=== PATIENT | male | born 1965 | race Two or more races ===

== ENCOUNTER 2017-12-08 17:30 | Inpatient (IN) | payer MEDICAID ==
[~2017-12-08] VITALS: Ht 172.7 cm; Wt 113.4 kg
[2017-12-08 19:57] LABS: Basophils # (auto) 0 uL; Basophils % (auto) 0.5 % (0.0-2.0); Eosinophils # (auto) 0.1 uL; Eosinophils % (auto) 1.5 % (0.0-7.0); Hemoglobin 11.5 g/dL (13.5-17.5); Lymphocytes # (auto) 2.7 uL; Mean Corpuscular Hemoglobin 22.5 pg (28.0-32.0); Monocytes # (auto) 0.5 uL; Neutrophils # (auto) 5.6 uL; Neutrophils % (auto) 62.5 % (37.0-80.0)
[2017-12-08 20:01] LABS: Hematocrit 37.4 % (41.0-53.0); Lymphocytes % (auto) 29.6 % (10.0-50.0); Mean Corpuscular Hgb Conc. 30.8 g/dL (32.0-36.0); Monocytes % (auto) 5.9 % (0.0-12.0); Nucleated Red Blood Cells % 0.1 %; Platelet Count (auto) 266 10^3/uL (140-450); Red Blood Cells 5.12 10^6/uL (4.5-5.90); Red Cell Distribution Width 16.3 % (11.8-14.3)
[2017-12-08 20:53] LABS: Sodium 133 mmol/L (136-145)
[2017-12-08 20:54] LABS: Alanine Aminotransferase 35 U/L (16-61); Alkaline Phosphatase 124 U/L (45-117); Anion Gap 7 (5-15); Aspartate Aminotransferase 23 U/L (15-37); BUN/Creatinine Ratio 20.2; Blood Urea Nitrogen 45 mg/dL (7-18); Carbon Dioxide 23 mmol/L (21-32); Chloride 103 mmol/L (98-107); GFR African American 40 mL/min; GFR Non-African American 33 mL/min
[2017-12-08 20:55] LABS: Albumin 2.9 g/dL (3.4-5.0); Bilirubin, Total 0.2 mg/dL (0.2-1.0); Calcium 8.8 mg/dL (8.5-10.1); Total Protein 8.7 g/dL (6.4-8.2)
[2017-12-08 21:00] LABS: Glucose 516 mg/dL (74-106); Potassium 6.9 mmol/L (3.5-5.1)
[2017-12-08] MEDS ORDERED: CALCIUM GLUC 4.65meq/50ml D5AE 50 ML IV ONE ×2 (22:42→22:45)
[2017-12-08] MEDS ORDERED: SODIUM POLYSTYRENE SULF 15GM/60ML SUSP PO ONE (22:45)
[2017-12-08] MEDS ORDERED: SODIUM BICARBONATE 8.4% INJ 50ML SYRINGE IV ONE (22:45)
[2017-12-08] MEDS ORDERED: InsuLIN REG 1unit/0.01ml Soln (100units/ml) IV ONE (22:45)
[2017-12-08] MEDS ORDERED: DEXTROSE (50%) 50ML SYRG IV ONE (22:45)
[2017-12-09] MEDS ORDERED: SODIUM CHLORIDE 0.9% 1,000 ML IV SCH (01:12)
[2017-12-09 01:13] LABS: Potassium 5.6 mmol/L (3.5-5.1)
[2017-12-09] MEDS ORDERED: NITROGLYCERIN 0.4 MG SL TAB SL PRN (01:15)
[2017-12-09] MEDS ORDERED: DEXTROSE (50%) 50ML SYRG IV PRN (01:15)
[2017-12-09] MEDS ORDERED: MORPHINE SULF INJ 2 MG/ML SYRINGE 1ML IV PRN (01:15)
[2017-12-09] MEDS ORDERED: ONDANSETRON HCL 4 MG/2 ML VIAL IV PRN (01:15)
[2017-12-09] MEDS ORDERED: SODIUM CHLORIDE 0.9% 500 ML IV ONE (01:15)
[2017-12-09] MEDS ORDERED: ACETAMINOPHEN 325 MG TAB PO PRN (01:15)
[2017-12-09] MEDS: ACCU-CHEK COMFORT CURVE STRIP VI SCH ×6 (03:51→23:48)
[2017-12-09] MEDS: InsuLIN REG 1unit/0.01ml Soln (100units/ml) SC SCH ×6 (03:56→23:48)
[2017-12-09] MEDS ORDERED: SPIRONOLACTONE 25 MG TAB PO SCH (06:00)
[2017-12-09] MEDS ORDERED: SPIR25TA89 (06:27)
[2017-12-09] MEDS ORDERED: ALLO100T (06:27)
[2017-12-09] MEDS ORDERED: MAGN400T23 (06:27)
[2017-12-09] MEDS ORDERED: METF-372 (06:27)
[2017-12-09] MEDS ORDERED: DOCU100C8 (06:27)
[2017-12-09] MEDS ORDERED: ATOR1TAB (06:27)
[2017-12-09] MEDS ORDERED: AMLO10TA2 (06:27)
[2017-12-09] MEDS ORDERED: FUR20T (06:27)
[2017-12-09] MEDS ORDERED: GLIP-116 (06:27)
[2017-12-09] MEDS ORDERED: CHOL20002 (06:27)
[2017-12-09] MEDS ORDERED: GABA400C11 (06:27)
[2017-12-09] MEDS ORDERED: GLUC-244 (06:27)
[2017-12-09] MEDS ORDERED: POTA1CAP (06:27)
[2017-12-09] MEDS ORDERED: LISI40TA (06:27)
[2017-12-09] MEDS ORDERED: CARV12.544 (06:27)
[2017-12-09] MEDS ORDERED: CANA300T (06:27)
[2017-12-09] MEDS ORDERED: DICY10CA12 (06:27)
[2017-12-09] MEDS ORDERED: LANC30MI (06:27)
[2017-12-09] MEDS: HEPARIN SODIUM (PORCINE) 5000 UNITS/ML 1ML VIAL SC SCH ×2 (10:00→21:36)
[2017-12-09] MEDS: CARVEDILOL 12.5 MG TAB PO SCH ×2 (10:42→21:38)
[2017-12-09] MEDS: FUROSEMIDE 20 MG TAB PO SCH (10:42)
[2017-12-09] MEDS: PANTOPRAZOLE 40 MG TAB PO SCH (10:43)
[2017-12-09] MEDS: amLODIPine BESYLATE 5 MG TAB PO SCH (10:43)
[2017-12-09 11:21] LABS: BUN/Creatinine Ratio 25.7; Calcium 8.8 mg/dL (8.5-10.1)
[2017-12-09 11:28] LABS: Potassium 5.6 mmol/L (3.5-5.1)
[2017-12-09] MEDS: HYDROcodone-ACET 5/325MG TAB PO PRN ×2 (13:22→19:54)
[2017-12-09 13:30] VITALS: BP 118/68
[2017-12-09] MEDS: SODIUM CHLORIDE 0.9% 1,000 ML IV SCH ×2 (13:40→20:12)
[2017-12-09] MEDS ORDERED: SODIUM CHLORIDE 0.9% 1,000 ML IV ONE (19:30)
[2017-12-09] MEDS ORDERED: ATORVASTATIN 20 MG TAB PO SCH (22:00)
[2017-12-09 22:06] VITALS: BP 160/94
[2017-12-10] MEDS: SODIUM CHLORIDE 0.9% 1,000 ML IV SCH ×2 (03:32→08:20)
[2017-12-10] MEDS: InsuLIN REG 1unit/0.01ml Soln (100units/ml) SC SCH ×3 (04:00→11:43)
[2017-12-10] MEDS: ACCU-CHEK COMFORT CURVE STRIP VI SCH ×3 (04:00→11:43)
[2017-12-10 04:29] VITALS: BP 134/72
[2017-12-10] MEDS: HYDROcodone-ACET 5/325MG TAB PO PRN ×2 (05:48→13:46)
[2017-12-10 06:18] LABS: Urine Bacteria NONE SEEN /hpf (None Seen); Urine Blood Negative /uL (Negative); Urine Budding Yeast OCCASIONAL /hpf (None Seen); Urine Specific Gravity 1.013 (1.001-1.035); Urine WBC 2 /hpf (0 - 3)
[2017-12-10 06:22] LABS: Eosinophils # (auto) 0.3 uL; Hematocrit 33.8 % (41.0-53.0); Hemoglobin 10.5 g/dL (13.5-17.5); Mean Corpuscular Hemoglobin 22.2 pg (28.0-32.0); Mean Corpuscular Volume 71.4 fL (80.0-100.0); Monocytes # (auto) 0.4 uL; Monocytes % (auto) 5.8 % (0.0-12.0); Nucleated Red Blood Cells % 0.1 %; Red Blood Cells 4.74 10^6/uL (4.5-5.90)
[2017-12-10 06:25] LABS: Basophils # (auto) 0.1 uL; Basophils % (auto) 0.8 % (0.0-2.0); Eosinophils % (auto) 4.3 % (0.0-7.0); Lymphocytes # (auto) 2.8 uL; Lymphocytes % (auto) 41.2 % (10.0-50.0); Mean Corpuscular Hgb Conc. 31.1 g/dL (32.0-36.0); Neutrophils # (auto) 3.3 uL; Neutrophils % (auto) 47.9 % (37.0-80.0); Platelet Count (auto) 244 10^3/uL (140-450); Red Cell Distribution Width 15.5 % (11.8-14.3); White Blood Cell 6.9 10^3/uL (4.4-10.8)
[2017-12-10 06:28] LABS: Protein, Urine 12.5 mg/dL (0.0-11.9)
[2017-12-10 06:44] LABS: Albumin 2.3 g/dL (3.4-5.0); BUN/Creatinine Ratio 29.4; Bilirubin, Total 0.3 mg/dL (0.2-1.0); Calcium 7.2 mg/dL (8.5-10.1); Phosphorus 3.5 mg/dL (2.5-4.90); Potassium 4.2 mmol/L (3.5-5.1); Total Protein 6.5 g/dL (6.4-8.2); Uric Acid 5.6 mg/dL (3.5-7.2)
[2017-12-10 08:00] VITALS: BP 142/82
[2017-12-10 09:00] VITALS: BP 142/82
[2017-12-10] MEDS: FUROSEMIDE 20 MG TAB PO SCH (09:41)
[2017-12-10] MEDS: CARVEDILOL 12.5 MG TAB PO SCH (09:41)
[2017-12-10] MEDS: amLODIPine BESYLATE 5 MG TAB PO SCH (09:41)
[2017-12-10] MEDS: PANTOPRAZOLE 40 MG TAB PO SCH (09:42)
[2017-12-10] MEDS: HEPARIN SODIUM (PORCINE) 5000 UNITS/ML 1ML VIAL SC SCH (09:43)
[2017-12-10 13:04] VITALS: BP 143/83
[2017-12-10 13:12] VITALS: BP 143/83
== END 2017-12-10 14:50 | disposition home or self-care (01) | DRG 420 ==
LOC: ER 17:30 → TELE 17:31 → TELE-CENTR 12-09 13:28
PROVIDERS: ADMIT Nurse Practitioner; ATTEND Internal Medicine
DX: E11.65 Type 2 diabetes mellitus with hyperglycemia (principal); N17.0 Acute kidney failure with tubular necrosis; E43 Unspecified severe protein-calorie malnutrition; I50.9 Heart failure, unspecified; I11.0 Hypertensive heart disease with heart failure; E11.21 Type 2 diabetes mellitus with diabetic nephropathy; E86.0 Dehydration; E87.1 Hypo-osmolality and hyponatremia; E87.5 Hyperkalemia; E66.01 Morbid (severe) obesity due to excess calories; E78.5 Hyperlipidemia, unspecified; E87.6 Hypokalemia; M10.9 Gout, unspecified; K21.9 Gastro-esophageal reflux disease without esophagitis; Z82.49 Family history of ischemic heart disease and other diseases of the circulatory system; Z83.3 Family history of diabetes mellitus; Z68.38 Body mass index [BMI] 38.0-38.9, adult; Z79.4 Long term (current) use of insulin
CPT/HCPCS: 36415; 71046; 76775; 80048; 80053; 81001; 82010; 82306; 82570; 82947; 82962; 83880; 84100; 84132; 84156; 84300; 84443; 84484; 84550; 85025; 93005; 96361; 96374; 96375; J0610; J1815; J2405

== ENCOUNTER 2020-03-20 05:24 | Inpatient (IN) | payer MEDICAID ==
[~2020-03-20] VITALS: Ht 167.6 cm; Wt 112.4 kg
[2020-03-20] VITALS (59 sets, daily range): BP systolic 87–136; BP diastolic 54–87
[~2020-03-20 05:24] MED LIST: ALLO100T; AMLO10TA13; ATOR1TAB; CANA300T; CARV12.544; CHOL20002; DICY10CA12; DOCU100C8; FUR20T; GABA400C11; GLIP10TA9; GLUC-244; LANC30MI; LISI40TA; MAGN241.6; METF-372; POTA1CAP; SPIR25TA8
[2020-03-20] MEDS ORDERED: MIDAZOLAM HCL 5 MG/ML-1ML VIAL ONE (05:28)
[2020-03-20] MEDS ORDERED: MIDAZOLAM HCL 10 ML IV ONE (05:29)
[2020-03-20] MEDS ORDERED: PROPOFOL 100 ML IV ONE (05:42)
[2020-03-20] MEDS: PROPOFOL 100 ML IV SCH ×3 (05:44→18:05)
[2020-03-20] MEDS ORDERED: MIDAZOLAM HCL 5 MG/ML-1ML VIAL IV ONE (05:45)
[2020-03-20] MEDS ORDERED: ETOMIDATE (2MG/ML) 20ML VIAL IV ONE (05:45)
[2020-03-20] MEDS ORDERED: SUCCINYLCHOLINE CHLORIDE 20 MG/ML 10ML VIAL IV ONE (05:45)
[2020-03-20 06:25] LABS: Basophils # (auto) 0.1 10 ^3/uL (0-0.2); Eosinophils # (auto) 0.2 10 ^3/uL (0-0.8); Monocytes % (auto) 4.9 % (0.0-12.0); Nucleated Red Blood Cells % 0.1 %; Red Blood Cells 5.24 10^6/uL (4.5-5.90); Red Cell Distribution Width 19.4 % (11.8-14.3)
[2020-03-20 06:28] LABS: Basophils % (auto) 0.8 % (0.0-2.0); Eosinophils % (auto) 1.9 % (0.0-7.0); Hematocrit 36.2 % (41.0-53.0); Hemoglobin 11.3 g/dL (13.5-17.5); Lymphocytes # (auto) 2.3 10 ^3/uL (0.4-5.4); Lymphocytes % (auto) 21.3 % (10.0-50.0); Mean Corpuscular Hemoglobin 21.5 pg (28.0-32.0); Mean Corpuscular Hgb Conc. 31.2 g/dL (32.0-36.0); Monocytes # (auto) 0.5 10 ^3/uL (0-1.3); Neutrophils # (auto) 7.8 10 ^3/uL (1.6-8.6); Neutrophils % (auto) 71.1 % (37.0-80.0); Platelet Count (auto) 156 10^3/uL (140-450)
[2020-03-20 06:35] LABS: INR 1.04 (0.9-1.15); Partial Thromboplastin Time 24.2 sec (23.64-32.05)
[2020-03-20 06:39] LABS: Albumin 3.1 g/dL (3.4-5.0); Calcium 7.7 mg/dL (8.5-10.1); Potassium 4.8 mmol/L (3.5-5.1)
[2020-03-20 06:45] LABS: BUN/Creatinine Ratio 19.1; Bilirubin, Total 0.7 mg/dL (0.2-1.0); Total Protein 7.4 g/dL (6.4-8.2)
[2020-03-20] MEDS ORDERED: SODIUM CHLORIDE 0.9% 1,000 ML IV SCH (07:14)
[2020-03-20] MEDS ORDERED: NITROGLYCERIN 0.4 MG SL TAB SL PRN (07:15)
[2020-03-20] MEDS ORDERED: DEXTROSE (50%) 50ML SYRG IV PRN (07:15)
[2020-03-20] MEDS ORDERED: MORPHINE SULF INJ 2 MG/ML SYRINGE 1ML IV PRN (07:15)
[2020-03-20 07:38] LABS: Magnesium 1.9 mg/dL (1.6-2.6)
[2020-03-20 08:36] LABS: CRP High Sensitivity 2.53 mg/dL (< 0.3)
[2020-03-20 09:44] LABS: Urine Bacteria NONE SEEN /hpf (None Seen); Urine Blood 1+ /uL (Negative); Urine Hyaline Cast MANY /lpf (0 - 2); Urine Mucus FEW (None Seen); Urine Specific Gravity 1.016 (1.001-1.035); Urine Sperm PRESENT /hpf (None Seen); Urine WBC 2 /hpf (0 - 3)
[2020-03-20] MEDS ORDERED: ASCORBIC ACID 1,000 MG TAB PO SCH (10:00)
[2020-03-20] MEDS ORDERED: ENOXAPARIN SOD 30 MG/0.3 ML SYRINGE SC SCH (10:00)
[2020-03-20] MEDS ORDERED: AZITHROMYCIN 500 MG TAB PO SCH (10:00)
[2020-03-20] MEDS ORDERED: ZINC SULFATE 220mg CAP or TAB PO SCH (10:00)
[2020-03-20] MEDS ORDERED: fentaNYL Drip 2500mCg/250mlNS 250 ML IV ONE (10:08)
[2020-03-20] MEDS: PIPERACILLIN-TAZOB 3.375GM 100 ML IV SCH ×3 (10:26→20:23)
[2020-03-20] MEDS: PANTOPRAZOLE 40 MG/10 ML VIAL INJ IV SCH (10:27)
[2020-03-20] MEDS: AZITHROMYCIN 500MG/ 250ML 250 ML IV SCH (10:28)
[2020-03-20] MEDS: fentaNYL Drip 2500mCg/250mlNS 250 ML IV SCH (10:29)
[2020-03-20] MEDS: ENOXAPARIN SOD 40 MG/0.4 ML SYRINGE SC SCH (10:29)
[2020-03-20] MEDS: ACCU-CHEK COMFORT CURVE STRIP VI SCH ×2 (11:58→17:25)
[2020-03-20] MEDS ORDERED: IPRATROPIUM BROM 0.5 MG/2.5ML INH SOL NEB SCH (12:00)
[2020-03-20] MEDS ORDERED: ALBUTEROL SULF 2.5 MG/0.5ML(0.5%) NEB SOLN NEB SCH (12:00)
[2020-03-20] MEDS: InsuLIN REG 1unit/0.01ml Soln (100units/ml) SC SCH ×2 (12:00→17:25)
[2020-03-20] MEDS ORDERED: LOSA25TA38 PO (12:42)
[2020-03-20] MEDS ORDERED: ATOR40TA52 PO (12:42)
[2020-03-20] MEDS ORDERED: FURO1TAB31 PO (12:42)
[2020-03-20] MEDS ORDERED: TAMS0.4C36 PO (12:42)
[2020-03-20] MEDS ORDERED: ASPI-404 PO (12:42)
[2020-03-20] MEDS ORDERED: CARV12.544 PO (12:42)
[2020-03-20] MEDS ORDERED: OMEP20TA PO (12:42)
[2020-03-20] MEDS ORDERED: AMLO5TAB15 PO (12:42)
[2020-03-20] MEDS ORDERED: GABA-339 PO (12:42)
[2020-03-20] MEDS ORDERED: CHOL200029 PO (12:42)
[2020-03-20] MEDS ORDERED: GLIP10TA9 PO (12:42)
[2020-03-20] MEDS ORDERED: ALLO100T PO (12:42)
[2020-03-20] MEDS ORDERED: METF-370 PO (12:42)
[2020-03-20] MEDS ORDERED: DOCU100T15 PO (12:42)
[2020-03-20] MEDS: IPRATROPIUM BROM 0.5 MG/2.5ML INH SOL NEB SCH ×2 (14:20→22:15)
[2020-03-20] MEDS: ALBUTEROL SULF 2.5 MG/0.5ML(0.5%) NEB SOLN NEB SCH ×2 (14:20→22:14)
[2020-03-20] MEDS ORDERED: FUROSEMIDE 20 MG/2 ML VIAL IV ONE (14:45)
[2020-03-20] MEDS: NOREPINEPHRINE 8 MG/250ML KIT 250 ML IV SCH (15:01)
[2020-03-20] MEDS: FUROSEMIDE 20 MG/2 ML VIAL IV SCH (17:26)
[2020-03-20] MEDS: LINEZOLID 600MG/300ML 300 ML IV SCH (22:00)
[2020-03-21] VITALS (103 sets, daily range): BP systolic 89–146; BP diastolic 39–75
[2020-03-21] MEDS: PIPERACILLIN-TAZOB 3.375GM 100 ML IV SCH ×4 (02:00→20:47)
[2020-03-21] MEDS: PROPOFOL 100 ML IV SCH ×3 (02:00→14:26)
[2020-03-21 04:19] LABS: Basophils # (auto) 0 10 ^3/uL (0-0.2); Basophils % (auto) 0.4 % (0.0-2.0); Eosinophils # (auto) 0.2 10 ^3/uL (0-0.8); Eosinophils % (auto) 3.1 % (0.0-7.0); Hematocrit 28.9 % (41.0-53.0); Lymphocytes # (auto) 1.8 10 ^3/uL (0.4-5.4); Lymphocytes % (auto) 30.3 % (10.0-50.0); Mean Corpuscular Hemoglobin 21.6 pg (28.0-32.0); Mean Corpuscular Hgb Conc. 31.3 g/dL (32.0-36.0); Mean Corpuscular Volume 69.1 fL (80.0-100.0); Monocytes # (auto) 0.5 10 ^3/uL (0-1.3); Monocytes % (auto) 8.6 % (0.0-12.0); Neutrophils # (auto) 3.3 10 ^3/uL (1.6-8.6); Neutrophils % (auto) 57.6 % (37.0-80.0); Platelet Count (auto) 133 10^3/uL (140-450); Red Blood Cells 4.19 10^6/uL (4.5-5.90); White Blood Cell 5.8 10^3/uL (4.4-10.8)
[2020-03-21 04:39] LABS: Potassium 3.9 mmol/L (3.5-5.1)
[2020-03-21 04:49] LABS: Albumin 2.5 g/dL (3.4-5.0); BUN/Creatinine Ratio 17.6; Bilirubin, Total 0.5 mg/dL (0.2-1.0); Calcium 7.5 mg/dL (8.5-10.1); Total Protein 6.1 g/dL (6.4-8.2)
[2020-03-21] MEDS: InsuLIN REG 1unit/0.01ml Soln (100units/ml) SC SCH ×4 (06:00→18:00)
[2020-03-21] MEDS: ACCU-CHEK COMFORT CURVE STRIP VI SCH ×4 (06:01→17:49)
[2020-03-21] MEDS: FUROSEMIDE 20 MG/2 ML VIAL IV SCH ×2 (06:01→17:49)
[2020-03-21] MEDS: IPRATROPIUM BROM 0.5 MG/2.5ML INH SOL NEB SCH ×3 (06:33→21:59)
[2020-03-21] MEDS: ALBUTEROL SULF 2.5 MG/0.5ML(0.5%) NEB SOLN NEB SCH ×3 (06:33→22:00)
[2020-03-21] MEDS ORDERED: DIGOXIN (250MCG/ML) 2 ML AMPULE IV ONE (07:45)
[2020-03-21] MEDS: AZITHROMYCIN 500MG/ 250ML 250 ML IV SCH (09:38)
[2020-03-21] MEDS: PANTOPRAZOLE 40 MG/10 ML VIAL INJ IV SCH (09:39)
[2020-03-21] MEDS: ENOXAPARIN SOD 40 MG/0.4 ML SYRINGE SC SCH (09:39)
[2020-03-21] MEDS: fentaNYL Drip 2500mCg/250mlNS 250 ML IV SCH (10:11)
[2020-03-21] MEDS: LINEZOLID 600MG/300ML 300 ML IV SCH ×2 (12:24→22:00)
[2020-03-21] MEDS: ACETAMINOPHEN 325 MG TAB PO PRN (12:41)
[2020-03-21] MEDS: NOREPINEPHRINE 8 MG/250ML KIT 250 ML IV SCH (15:01)
[2020-03-21] MEDS: MIDAZOLAM DRIP 50 mg/50mL 50 ML IV SCH (18:00)
[2020-03-21] MEDS: ATRACURIUM BESYLATE 1,000 MG in D5W 5% 150 ML IV SCH (19:04)
[2020-03-22] VITALS (98 sets, daily range): BP systolic 88–151; BP diastolic 48–79
[2020-03-22] MEDS: ACCU-CHEK COMFORT CURVE STRIP VI SCH ×4 (00:14→17:36)
[2020-03-22] MEDS: PIPERACILLIN-TAZOB 3.375GM 100 ML IV SCH ×4 (02:00→20:00)
[2020-03-22] MEDS: PROPOFOL 100 ML IV SCH ×2 (04:52→16:50)
[2020-03-22] MEDS: InsuLIN REG 1unit/0.01ml Soln (100units/ml) SC SCH ×4 (06:00→17:36)
[2020-03-22] MEDS: IPRATROPIUM BROM 0.5 MG/2.5ML INH SOL NEB SCH ×3 (06:01→18:29)
[2020-03-22] MEDS: ALBUTEROL SULF 2.5 MG/0.5ML(0.5%) NEB SOLN NEB SCH ×3 (06:01→18:29)
[2020-03-22] MEDS ORDERED: FUROSEMIDE 40 MG/4 ML VIAL ONE (06:14)
[2020-03-22] MEDS: FUROSEMIDE 20 MG/2 ML VIAL IV SCH (06:20)
[2020-03-22 09:20] LABS: Magnesium 1.9 mg/dL (1.6-2.6); Potassium 3.7 mmol/L (3.5-5.1)
[2020-03-22 09:21] LABS: BUN/Creatinine Ratio 16.3
[2020-03-22] MEDS: PANTOPRAZOLE 40 MG/10 ML VIAL INJ IV SCH (09:51)
[2020-03-22] MEDS: AZITHROMYCIN 500MG/ 250ML 250 ML IV SCH (09:51)
[2020-03-22] MEDS: ENOXAPARIN SOD 40 MG/0.4 ML SYRINGE SC SCH (09:51)
[2020-03-22] MEDS: fentaNYL Drip 2500mCg/250mlNS 250 ML IV SCH (10:11)
[2020-03-22] MEDS: LINEZOLID 600MG/300ML 300 ML IV SCH ×2 (12:04→22:00)
[2020-03-22] MEDS: NOREPINEPHRINE 8 MG/250ML KIT 250 ML IV SCH (15:01)
[2020-03-22] MEDS: MIDAZOLAM DRIP 50 mg/50mL 50 ML IV SCH (17:29)
[2020-03-22] MEDS: ATRACURIUM BESYLATE 1,000 MG in D5W 5% 150 ML IV SCH (17:30)
[2020-03-22] MEDS ORDERED: FUROSEMIDE INJECTION 10 ML ONE (18:25)
[2020-03-23] VITALS (74 sets, daily range): BP systolic 96–155; BP diastolic 53–84
[2020-03-23] MEDS: IPRATROPIUM BROM 0.5 MG/2.5ML INH SOL NEB SCH ×4 (00:29→18:29)
[2020-03-23] MEDS: ALBUTEROL SULF 2.5 MG/0.5ML(0.5%) NEB SOLN NEB SCH ×4 (00:29→18:29)
[2020-03-23] MEDS: fentaNYL Drip 2500mCg/250mlNS 250 ML IV SCH (00:42)
[2020-03-23] MEDS: PROPOFOL 100 ML IV SCH ×3 (00:43→19:46)
[2020-03-23] MEDS: PIPERACILLIN-TAZOB 3.375GM 100 ML IV SCH ×4 (02:00→19:54)
[2020-03-23 04:51] LABS: Basophils # (auto) 0 10 ^3/uL (0-0.2); Basophils % (auto) 0.4 % (0.0-2.0); Eosinophils # (auto) 0.2 10 ^3/uL (0-0.8); Monocytes # (auto) 0.6 10 ^3/uL (0-1.3); Neutrophils # (auto) 4.8 10 ^3/uL (1.6-8.6)
[2020-03-23 04:54] LABS: Eosinophils % (auto) 3.2 % (0.0-7.0); Hematocrit 29.1 % (41.0-53.0); Lymphocytes % (auto) 14.7 % (10.0-50.0); Mean Corpuscular Hemoglobin 21.2 pg (28.0-32.0); Mean Corpuscular Hgb Conc. 31.1 g/dL (32.0-36.0); Mean Corpuscular Volume 68.1 fL (80.0-100.0); Monocytes % (auto) 8.9 % (0.0-12.0); Neutrophils % (auto) 72.8 % (37.0-80.0); Platelet Count (auto) 126 10^3/uL (140-450); Red Blood Cells 4.27 10^6/uL (4.5-5.90); Red Cell Distribution Width 18.8 % (11.8-14.3); White Blood Cell 6.6 10^3/uL (4.4-10.8)
[2020-03-23 05:03] LABS: BUN/Creatinine Ratio 14.7; Calcium 7.9 mg/dL (8.5-10.1); Magnesium 2.1 mg/dL (1.6-2.6); Potassium 3.7 mmol/L (3.5-5.1)
[2020-03-23] MEDS: FUROSEMIDE 100 MG/10ML VIAL IV SCH ×2 (05:34→17:45)
[2020-03-23] MEDS: InsuLIN REG 1unit/0.01ml Soln (100units/ml) SC SCH ×4 (05:55→18:00)
[2020-03-23] MEDS: ACCU-CHEK COMFORT CURVE STRIP VI SCH ×4 (05:55→18:00)
[2020-03-23] MEDS: ENOXAPARIN SOD 40 MG/0.4 ML SYRINGE SC SCH (09:48)
[2020-03-23] MEDS: PANTOPRAZOLE 40 MG/10 ML VIAL INJ IV SCH (09:48)
[2020-03-23] MEDS: AZITHROMYCIN 500MG/ 250ML 250 ML IV SCH (09:48)
[2020-03-23] MEDS: MIDAZOLAM DRIP 50 mg/50mL 50 ML IV SCH ×2 (10:33→17:47)
[2020-03-23] MEDS: LINEZOLID 600MG/300ML 300 ML IV SCH ×2 (12:53→21:56)
[2020-03-23] MEDS: NOREPINEPHRINE 8 MG/250ML KIT 250 ML IV SCH (15:01)
[2020-03-23] MEDS: ATRACURIUM BESYLATE 1,000 MG in D5W 5% 150 ML IV SCH (18:35)
[2020-03-24] VITALS (95 sets, daily range): BP systolic 99–129; BP diastolic 49–73
[2020-03-24] MEDS: ALBUTEROL SULF 2.5 MG/0.5ML(0.5%) NEB SOLN NEB SCH ×5 (00:01→23:59)
[2020-03-24] MEDS: IPRATROPIUM BROM 0.5 MG/2.5ML INH SOL NEB SCH ×5 (00:02→23:59)
[2020-03-24] MEDS: PIPERACILLIN-TAZOB 3.375GM 100 ML IV SCH ×4 (02:13→19:25)
[2020-03-24] MEDS: PROPOFOL 100 ML IV SCH ×3 (02:15→20:44)
[2020-03-24] MEDS: MIDAZOLAM DRIP 50 mg/50mL 50 ML IV SCH ×2 (02:52→10:12)
[2020-03-24] MEDS: fentaNYL Drip 2500mCg/250mlNS 250 ML IV SCH ×2 (03:30→23:22)
[2020-03-24 05:02] LABS: Basophils # (auto) 0 10 ^3/uL (0-0.2); Hemoglobin 8.7 g/dL (13.5-17.5); Monocytes # (auto) 0.4 10 ^3/uL (0-1.3); Neutrophils # (auto) 3.5 10 ^3/uL (1.6-8.6); Neutrophils % (auto) 67.7 % (37.0-80.0); Nucleated Red Blood Cells % 0.1 %
[2020-03-24 05:04] LABS: Basophils % (auto) 0.4 % (0.0-2.0); Eosinophils # (auto) 0.3 10 ^3/uL (0-0.8); Lymphocytes % (auto) 18.7 % (10.0-50.0); Mean Corpuscular Volume 67.9 fL (80.0-100.0); Monocytes % (auto) 8.2 % (0.0-12.0); Platelet Count (auto) 130 10^3/uL (140-450); Red Blood Cells 4.12 10^6/uL (4.5-5.90); Red Cell Distribution Width 17.9 % (11.8-14.3); White Blood Cell 5.1 10^3/uL (4.4-10.8)
[2020-03-24 05:13] LABS: Potassium 3.7 mmol/L (3.5-5.1)
[2020-03-24 05:20] LABS: BUN/Creatinine Ratio 13.8; Bilirubin, Total 0.6 mg/dL (0.2-1.0); Calcium 8.1 mg/dL (8.5-10.1); Total Protein 6.5 g/dL (6.4-8.2)
[2020-03-24] MEDS: FUROSEMIDE 100 MG/10ML VIAL IV SCH ×2 (06:15→17:33)
[2020-03-24] MEDS: InsuLIN REG 1unit/0.01ml Soln (100units/ml) SC SCH ×5 (06:20→23:33)
[2020-03-24] MEDS: ACCU-CHEK COMFORT CURVE STRIP VI SCH ×4 (06:21→17:34)
[2020-03-24] MEDS ORDERED: Glucerna 1.2 Cal 1Liter BOTTLE GT SCH (08:15)
[2020-03-24] MEDS: PANTOPRAZOLE 40 MG/10 ML VIAL INJ IV SCH (09:44)
[2020-03-24] MEDS: AZITHROMYCIN 500MG/ 250ML 250 ML IV SCH (09:44)
[2020-03-24] MEDS: ENOXAPARIN SOD 40 MG/0.4 ML SYRINGE SC SCH (09:45)
[2020-03-24] MEDS: LINEZOLID 600MG/300ML 300 ML IV SCH ×2 (09:45→23:07)
[2020-03-24] MEDS ORDERED: ROCURONIUM 10MG/ML 10ML VIAL IV PRN (15:15)
[2020-03-25] VITALS (89 sets, daily range): BP systolic 86–155; BP diastolic 45–80
[2020-03-25] MEDS: ACCU-CHEK COMFORT CURVE STRIP VI SCH ×4 (01:03→20:00)
[2020-03-25] MEDS: PIPERACILLIN-TAZOB 3.375GM 100 ML IV SCH ×4 (01:38→20:40)
[2020-03-25] MEDS: PROPOFOL 100 ML IV SCH ×5 (01:43→10:16)
[2020-03-25 04:16] LABS: Basophils # (auto) 0 10 ^3/uL (0-0.2); Eosinophils # (auto) 0.3 10 ^3/uL (0-0.8); Hemoglobin 8.5 g/dL (13.5-17.5); Mean Corpuscular Volume 66.9 fL (80.0-100.0); Monocytes # (auto) 0.3 10 ^3/uL (0-1.3); Neutrophils # (auto) 2.6 10 ^3/uL (1.6-8.6); Nucleated Red Blood Cells % 0.1 %; White Blood Cell 4.2 10^3/uL (4.4-10.8)
[2020-03-25 04:19] LABS: Basophils % (auto) 0.4 % (0.0-2.0); Eosinophils % (auto) 6.2 % (0.0-7.0); Hematocrit 27.1 % (41.0-53.0); Lymphocytes % (auto) 23.2 % (10.0-50.0); Mean Corpuscular Hemoglobin 20.9 pg (28.0-32.0); Mean Corpuscular Hgb Conc. 31.2 g/dL (32.0-36.0); Monocytes % (auto) 7.6 % (0.0-12.0); Neutrophils % (auto) 62.6 % (37.0-80.0); Platelet Count (auto) 149 10^3/uL (140-450); Red Blood Cells 4.06 10^6/uL (4.5-5.90); Red Cell Distribution Width 17.6 % (11.8-14.3)
[2020-03-25 04:52] LABS: Albumin 1.9 g/dL (3.4-5.0); Calcium 8.5 mg/dL (8.5-10.1); Potassium 3.6 mmol/L (3.5-5.1)
[2020-03-25 04:57] LABS: Bilirubin, Total 0.6 mg/dL (0.2-1.0); Total Protein 6.5 g/dL (6.4-8.2)
[2020-03-25] MEDS: InsuLIN REG 1unit/0.01ml Soln (100units/ml) SC SCH ×3 (05:31→20:50)
[2020-03-25] MEDS: FUROSEMIDE 100 MG/10ML VIAL IV SCH ×2 (06:28→17:53)
[2020-03-25] MEDS: ALBUTEROL SULF 2.5 MG/0.5ML(0.5%) NEB SOLN NEB SCH ×3 (06:32→18:35)
[2020-03-25] MEDS: IPRATROPIUM BROM 0.5 MG/2.5ML INH SOL NEB SCH ×3 (06:32→18:35)
[2020-03-25] MEDS: ENOXAPARIN SOD 40 MG/0.4 ML SYRINGE SC SCH (10:10)
[2020-03-25] MEDS: PANTOPRAZOLE 40 MG/10 ML VIAL INJ IV SCH (10:10)
[2020-03-25] MEDS: LINEZOLID 600MG/300ML 300 ML IV SCH ×2 (10:10→22:29)
[2020-03-25] MEDS ORDERED: TPN PER PHARMACY 0 ML IV SCH (15:45)
[2020-03-25] MEDS ORDERED: AMINO ACID INFUSION IN D5W 2,000 ML IV NR ×2 (17:15→20:00)
[2020-03-25] MEDS: MIDAZOLAM DRIP 50 mg/50mL 50 ML IV SCH (17:44)
[2020-03-25] MEDS ORDERED: DEXTROSE (50%) 50ML SYRG IV SCH (20:00)
[2020-03-25 21:02] LABS: Hemoglobin 9.3 g/dL (13.5-17.5)
[2020-03-25 21:04] LABS: Hematocrit 29.3 % (41.0-53.0)
[2020-03-25] MEDS: ACETAMINOPHEN 325 MG TAB PO PRN (22:29)
[2020-03-26] VITALS (98 sets, daily range): BP systolic 70–202; BP diastolic 57–114
[2020-03-26] MEDS: ALBUTEROL SULF 2.5 MG/0.5ML(0.5%) NEB SOLN NEB SCH ×4 (00:24→18:28)
[2020-03-26] MEDS: IPRATROPIUM BROM 0.5 MG/2.5ML INH SOL NEB SCH ×4 (00:24→18:28)
[2020-03-26] MEDS: fentaNYL Drip 2500mCg/250mlNS 250 ML IV SCH ×2 (01:30→18:01)
[2020-03-26] MEDS: PIPERACILLIN-TAZOB 3.375GM 100 ML IV SCH ×4 (02:00→20:30)
[2020-03-26] MEDS: InsuLIN REG 1unit/0.01ml Soln (100units/ml) SC SCH ×4 (02:30→20:30)
[2020-03-26] MEDS: ACCU-CHEK COMFORT CURVE STRIP VI SCH ×4 (02:30→20:30)
[2020-03-26 04:04] LABS: Basophils # (auto) 0 10 ^3/uL (0-0.2); Eosinophils # (auto) 0.2 10 ^3/uL (0-0.8); Eosinophils % (auto) 3.7 % (0.0-7.0); Hemoglobin 9.2 g/dL (13.5-17.5); Lymphocytes # (auto) 0.9 10 ^3/uL (0.4-5.4); Lymphocytes % (auto) 18.7 % (10.0-50.0); Mean Corpuscular Hemoglobin 21.2 pg (28.0-32.0); Mean Corpuscular Hgb Conc. 31.7 g/dL (32.0-36.0); Mean Corpuscular Volume 66.8 fL (80.0-100.0); Monocytes # (auto) 0.3 10 ^3/uL (0-1.3); Monocytes % (auto) 6.1 % (0.0-12.0); Neutrophils # (auto) 3.2 10 ^3/uL (1.6-8.6); Neutrophils % (auto) 70.5 % (37.0-80.0); Platelet Count (auto) 154 10^3/uL (140-450); Red Blood Cells 4.34 10^6/uL (4.5-5.90); White Blood Cell 4.6 10^3/uL (4.4-10.8)
[2020-03-26 04:24] LABS: Albumin 1.9 g/dL (3.4-5.0); Calcium 8.7 mg/dL (8.5-10.1); Magnesium 2.5 mg/dL (1.6-2.6)
[2020-03-26 04:30] LABS: BUN/Creatinine Ratio 18.9; Bilirubin, Total 0.6 mg/dL (0.2-1.0); Phosphorus 3.5 mg/dL (2.5-4.90); Pre Albumin 12.3 mg/dL (20.0-40.0); Total Protein 7.2 g/dL (6.4-8.2)
[2020-03-26] MEDS: FUROSEMIDE 100 MG/10ML VIAL IV SCH ×2 (05:38→17:57)
[2020-03-26] MEDS: ENOXAPARIN SOD 40 MG/0.4 ML SYRINGE SC SCH (10:27)
[2020-03-26] MEDS: LINEZOLID 600MG/300ML 300 ML IV SCH ×2 (10:27→22:00)
[2020-03-26] MEDS: PANTOPRAZOLE 40 MG/10 ML VIAL INJ IV SCH (10:27)
[2020-03-26] MEDS: MIDAZOLAM DRIP 50 mg/50mL 50 ML IV SCH (17:44)
[2020-03-26] MEDS: TPN PER PHARMACY IV NR ×7 (20:30)
[2020-03-27] VITALS (102 sets, daily range): BP systolic 100–185; BP diastolic 49–96
[2020-03-27] MEDS: ALBUTEROL SULF 2.5 MG/0.5ML(0.5%) NEB SOLN NEB SCH ×4 (00:22→18:33)
[2020-03-27] MEDS: IPRATROPIUM BROM 0.5 MG/2.5ML INH SOL NEB SCH ×4 (00:22→18:33)
[2020-03-27] MEDS: PROPOFOL 100 ML IV SCH ×3 (01:00→17:05)
[2020-03-27] MEDS: InsuLIN REG 1unit/0.01ml Soln (100units/ml) SC SCH ×4 (02:00→20:06)
[2020-03-27] MEDS: ACCU-CHEK COMFORT CURVE STRIP VI SCH ×4 (02:00→20:06)
[2020-03-27] MEDS: PIPERACILLIN-TAZOB 3.375GM 100 ML IV SCH ×4 (02:30→19:59)
[2020-03-27 04:24] LABS: Albumin 1.9 g/dL (3.4-5.0); Calcium 8.4 mg/dL (8.5-10.1); Magnesium 2.3 mg/dL (1.6-2.6)
[2020-03-27 04:28] LABS: BUN/Creatinine Ratio 21.1; Bilirubin, Total 0.6 mg/dL (0.2-1.0); Phosphorus 1.5 mg/dL (2.5-4.90); Total Protein 6.9 g/dL (6.4-8.2)
[2020-03-27] MEDS: POTASSIUM CHL 20MEQ/100ML 100 ML IV SCH ×4 (05:33→21:40)
[2020-03-27] MEDS: FUROSEMIDE 100 MG/10ML VIAL IV SCH ×2 (06:26→18:10)
[2020-03-27] MEDS: fentaNYL Drip 2500mCg/250mlNS 250 ML IV SCH ×2 (07:10→18:21)
[2020-03-27] MEDS ORDERED: POTASSIUM PHOSPHATE 44 MEQ in D5W 5% 250 ML IV ONE (09:45)
[2020-03-27] MEDS: ENOXAPARIN SOD 40 MG/0.4 ML SYRINGE SC SCH (10:00)
[2020-03-27] MEDS: LINEZOLID 600MG/300ML 300 ML IV SCH ×2 (10:16→21:43)
[2020-03-27] MEDS: PANTOPRAZOLE 40 MG/10 ML VIAL INJ IV SCH (10:16)
[2020-03-27] MEDS ORDERED: POTASSIUM CHL 20MEQ/100ML 100 ML IV SCH (10:45)
[2020-03-27] MEDS: MIDAZOLAM DRIP 50 mg/50mL 50 ML IV SCH (17:44)
[2020-03-27] MEDS ORDERED: TPN PER PHARMACY IV NR ×10 (20:00)
[2020-03-27] MEDS: TPN PER PHARMACY IV NR ×7 (20:03)
[2020-03-28] VITALS (97 sets, daily range): BP systolic 108–197; BP diastolic 58–112
[2020-03-28] MEDS: IPRATROPIUM BROM 0.5 MG/2.5ML INH SOL NEB SCH ×4 (00:25→18:18)
[2020-03-28] MEDS: ALBUTEROL SULF 2.5 MG/0.5ML(0.5%) NEB SOLN NEB SCH ×4 (00:25→18:18)
[2020-03-28] MEDS: ACCU-CHEK COMFORT CURVE STRIP VI SCH ×4 (02:13→20:23)
[2020-03-28] MEDS: InsuLIN REG 1unit/0.01ml Soln (100units/ml) SC SCH ×4 (02:24→20:26)
[2020-03-28] MEDS: PIPERACILLIN-TAZOB 3.375GM 100 ML IV SCH ×4 (02:25→20:15)
[2020-03-28] MEDS: PROPOFOL 100 ML IV SCH ×3 (02:53→20:30)
[2020-03-28] MEDS: hydrALAZINE HCL 20 MG/ML VL IV PRN (04:12)
[2020-03-28 05:09] LABS: Albumin 2.1 g/dL (3.4-5.0); Calcium 8.7 mg/dL (8.5-10.1); Magnesium 2.2 mg/dL (1.6-2.6); Potassium 4.1 mmol/L (3.5-5.1)
[2020-03-28 05:12] LABS: BUN/Creatinine Ratio 22.6; Bilirubin, Total 0.6 mg/dL (0.2-1.0); Phosphorus 2.9 mg/dL (2.5-4.90); Total Protein 7.4 g/dL (6.4-8.2)
[2020-03-28] MEDS: ACETAMINOPHEN 325 MG TAB PO PRN ×2 (05:35→12:34)
[2020-03-28] MEDS: FUROSEMIDE 100 MG/10ML VIAL IV SCH ×2 (05:39→18:27)
[2020-03-28] MEDS ORDERED: CARVEDILOL 12.5 MG TAB ONE (06:35)
[2020-03-28] MEDS ORDERED: CARVEDILOL 3.125 MG TAB PO ONE (06:45)
[2020-03-28] MEDS ORDERED: METOPROLOL TARTRATE 1MG/1ML-5ML VIAL IV PRN (09:45)
[2020-03-28] MEDS: PANTOPRAZOLE 40 MG/10 ML VIAL INJ IV SCH (10:01)
[2020-03-28] MEDS: SACUBITRIL-VALSARTAN 24mg/26mg TAB PO SCH ×2 (10:01→21:47)
[2020-03-28] MEDS: ENOXAPARIN SOD 40 MG/0.4 ML SYRINGE SC SCH (10:01)
[2020-03-28] MEDS: LINEZOLID 600MG/300ML 300 ML IV SCH ×2 (10:01→21:47)
[2020-03-28] MEDS: DexMEDEtomidine 400 MCG in D5W 5% 96 ML IV SCH (11:11)
[2020-03-28] MEDS: MIDAZOLAM DRIP 50 mg/50mL 50 ML IV SCH (17:16)
[2020-03-28] MEDS: fentaNYL Drip 2500mCg/250mlNS 250 ML IV SCH (17:28)
[2020-03-28] MEDS ORDERED: TPN PER PHARMACY IV NR ×10 (20:00)
[2020-03-29] VITALS (66 sets, daily range): BP systolic 104–166; BP diastolic 61–92
[2020-03-29] MEDS: PROPOFOL 100 ML IV SCH (00:15)
[2020-03-29] MEDS: IPRATROPIUM BROM 0.5 MG/2.5ML INH SOL NEB SCH ×4 (00:21→18:51)
[2020-03-29] MEDS: ALBUTEROL SULF 2.5 MG/0.5ML(0.5%) NEB SOLN NEB SCH ×4 (00:21→18:51)
[2020-03-29] MEDS: ACCU-CHEK COMFORT CURVE STRIP VI SCH ×4 (02:28→20:20)
[2020-03-29] MEDS: InsuLIN REG 1unit/0.01ml Soln (100units/ml) SC SCH ×4 (02:30→20:23)
[2020-03-29] MEDS: PIPERACILLIN-TAZOB 3.375GM 100 ML IV SCH ×4 (02:31→20:20)
[2020-03-29] MEDS: DexMEDEtomidine 400 MCG in D5W 5% 96 ML IV SCH ×2 (03:39→07:54)
[2020-03-29 04:37] LABS: Potassium 3.2 mmol/L (3.5-5.1)
[2020-03-29 04:46] LABS: Albumin 2.1 g/dL (3.4-5.0); BUN/Creatinine Ratio 20.9; Bilirubin, Total 0.6 mg/dL (0.2-1.0); Calcium 8.6 mg/dL (8.5-10.1); Magnesium 2.3 mg/dL (1.6-2.6); Phosphorus 3.3 mg/dL (2.5-4.90); Pre Albumin 24.6 mg/dL (20.0-40.0); Total Protein 7.4 g/dL (6.4-8.2)
[2020-03-29] MEDS: FUROSEMIDE 100 MG/10ML VIAL IV SCH ×2 (06:30→18:00)
[2020-03-29 07:21] LABS: Basophils # (auto) 0 10 ^3/uL (0-0.2); Eosinophils # (auto) 0.1 10 ^3/uL (0-0.8); Lymphocytes # (auto) 1.6 10 ^3/uL (0.4-5.4); Monocytes # (auto) 0.6 10 ^3/uL (0-1.3); Red Cell Distribution Width 18.1 % (11.8-14.3)
[2020-03-29 07:22] LABS: Basophils % (auto) 0.8 % (0.0-2.0); Eosinophils % (auto) 2.1 % (0.0-7.0); Hematocrit 32.2 % (41.0-53.0); Hemoglobin 10.1 g/dL (13.5-17.5); Lymphocytes % (auto) 26.6 % (10.0-50.0); Mean Corpuscular Hemoglobin 21.1 pg (28.0-32.0); Mean Corpuscular Hgb Conc. 31.3 g/dL (32.0-36.0); Mean Corpuscular Volume 67.5 fL (80.0-100.0); Monocytes % (auto) 10.5 % (0.0-12.0); Neutrophils # (auto) 3.6 10 ^3/uL (1.6-8.6); Nucleated Red Blood Cells % 0.2 %; Platelet Count (auto) 204 10^3/uL (140-450); Red Blood Cells 4.77 10^6/uL (4.5-5.90)
[2020-03-29] MEDS ORDERED: POTASSIUM CHL 20MEQ/100ML 100 ML IV ONE (07:30)
[2020-03-29] MEDS: PANTOPRAZOLE 40 MG/10 ML VIAL INJ IV SCH (09:33)
[2020-03-29] MEDS: LINEZOLID 600MG/300ML 300 ML IV SCH ×2 (09:33→21:53)
[2020-03-29] MEDS: ENOXAPARIN SOD 40 MG/0.4 ML SYRINGE SC SCH (09:33)
[2020-03-29] MEDS: SACUBITRIL-VALSARTAN 24mg/26mg TAB PO SCH ×2 (09:33→21:53)
[2020-03-29] MEDS: POTASSIUM CHL 20MEQ/100ML 100 ML IV SCH ×2 (11:54→14:34)
[2020-03-29] MEDS: ACETAMINOPHEN 325 MG TAB PO PRN (15:34)
[2020-03-29] MEDS: hydrALAZINE HCL 20 MG/ML VL IV PRN (16:44)
[2020-03-29] MEDS ORDERED: TPN PER PHARMACY IV NR ×9 (20:00)
[2020-03-30] MEDS: IPRATROPIUM BROM 0.5 MG/2.5ML INH SOL NEB SCH ×4 (00:17→19:10)
[2020-03-30] MEDS: ALBUTEROL SULF 2.5 MG/0.5ML(0.5%) NEB SOLN NEB SCH ×4 (00:18→19:10)
[2020-03-30] MEDS: PIPERACILLIN-TAZOB 3.375GM 100 ML IV SCH ×4 (02:12→21:27)
[2020-03-30] MEDS: ACCU-CHEK COMFORT CURVE STRIP VI SCH ×2 (02:12→08:08)
[2020-03-30] MEDS: InsuLIN REG 1unit/0.01ml Soln (100units/ml) SC SCH ×2 (02:17→08:07)
[2020-03-30 05:00] VITALS: BP 157/96
[2020-03-30] MEDS: FUROSEMIDE 100 MG/10ML VIAL IV SCH ×2 (05:44→18:49)
[2020-03-30 07:00] LABS: INR 1.09 (0.9-1.15); Partial Thromboplastin Time 27.9 sec (23.64-32.05)
[2020-03-30 07:03] LABS: Potassium 3.7 mmol/L (3.5-5.1)
[2020-03-30 07:16] LABS: Albumin 2.3 g/dL (3.4-5.0); Bilirubin, Total 0.9 mg/dL (0.2-1.0); Calcium 8.8 mg/dL (8.5-10.1); Phosphorus 2.7 mg/dL (2.5-4.90); Total Protein 7.6 g/dL (6.4-8.2)
[2020-03-30 09:00] VITALS: BP 155/90
[2020-03-30] MEDS: PANTOPRAZOLE 40 MG/10 ML VIAL INJ IV SCH (09:41)
[2020-03-30] MEDS: SACUBITRIL-VALSARTAN 24mg/26mg TAB PO SCH ×2 (09:42→21:29)
[2020-03-30] MEDS: ENOXAPARIN SOD 40 MG/0.4 ML SYRINGE SC SCH (09:42)
[2020-03-30] MEDS: LINEZOLID 600MG/300ML 300 ML IV SCH ×2 (11:49→18:49)
[2020-03-30] MEDS ORDERED: TPN PER PHARMACY 0 ML IV SCH (12:15)
[2020-03-30] MEDS: hydrALAZINE HCL 20 MG/ML VL IV PRN ×2 (12:52→22:37)
[2020-03-30 13:00] VITALS: BP 160/76
[2020-03-30] MEDS ORDERED: ceFAZolin 1GM VL ONE (13:52)
[2020-03-30] MEDS ORDERED: MIDAZOLAM HCL 1MG/1ML-2 ML VIAL ONE (13:52)
[2020-03-30] MEDS ORDERED: ATROPINE SULF 1 MG/10ml SYR ONE (13:52)
[2020-03-30] MEDS ORDERED: fentaNYL CITRATE 100 MCG/2 ML VL ONE (13:52)
[2020-03-30] MEDS ORDERED: VANCOMYCIN HCL 1000 MG VL ONE (13:52)
[2020-03-30] MEDS ORDERED: LIDOCAINE 2%HCL (LOCAL ANESTH.) INJ 20ML MDV ONE ×2 (13:53→13:56)
[2020-03-30] MEDS ORDERED: BACITRACIN INJ 50000 UNIT VIAL ONE (13:53)
[2020-03-30] MEDS ORDERED: IODIXANOL 320MG/ML 100ML BTL IV ONE (13:56)
[2020-03-30] MEDS ORDERED: METOPROLOL TARTRATE 1MG/1ML-5ML VIAL IV ONE (15:06)
[2020-03-30 17:00] VITALS: BP 144/89
[2020-03-30] MEDS ORDERED: TPN PER PHARMACY IV NR ×10 (20:00)
[2020-03-30] MEDS: FLORASTOR (S. BOULARDII) 250 MG CAP PO SCH (21:30)
[2020-03-30] MEDS: DOXYCYCLINE 100 MG TAB/CAP PO SCH (21:32)
[2020-03-30] MEDS: ONDANSETRON HCL 4 MG/2 ML VIAL IV PRN (22:37)
[2020-03-30 22:41] VITALS: BP 157/107
[2020-03-31] MEDS: IPRATROPIUM BROM 0.5 MG/2.5ML INH SOL NEB SCH ×4 (00:33→17:54)
[2020-03-31] MEDS: ALBUTEROL SULF 2.5 MG/0.5ML(0.5%) NEB SOLN NEB SCH ×4 (00:34→17:54)
[2020-03-31] MEDS: PIPERACILLIN-TAZOB 3.375GM 100 ML IV SCH ×5 (02:38→23:40)
[2020-03-31 05:00] VITALS: BP 188/101
[2020-03-31] MEDS: FUROSEMIDE 100 MG/10ML VIAL IV SCH ×2 (05:10→17:33)
[2020-03-31] MEDS: LINEZOLID 600MG/300ML 300 ML IV SCH ×2 (05:10→17:33)
[2020-03-31] MEDS: hydrALAZINE HCL 20 MG/ML VL IV PRN ×3 (05:11→23:39)
[2020-03-31] MEDS: ONDANSETRON HCL 4 MG/2 ML VIAL IV PRN ×3 (05:48→20:11)
[2020-03-31 09:00] VITALS: BP 159/94
[2020-03-31] MEDS: DOXYCYCLINE 100 MG TAB/CAP PO SCH ×2 (09:35→20:12)
[2020-03-31] MEDS: SACUBITRIL-VALSARTAN 24mg/26mg TAB PO SCH ×2 (09:35→20:10)
[2020-03-31] MEDS: PANTOPRAZOLE 40 MG/10 ML VIAL INJ IV SCH (09:35)
[2020-03-31] MEDS: FLORASTOR (S. BOULARDII) 250 MG CAP PO SCH ×2 (09:36→20:11)
[2020-03-31 13:00] VITALS: BP 196/110
[2020-03-31 17:00] VITALS: BP 150/90
[2020-03-31 22:00] VITALS: BP 155/88
[2020-04-01] MEDS: IPRATROPIUM BROM 0.5 MG/2.5ML INH SOL NEB SCH ×4 (00:33→19:17)
[2020-04-01] MEDS: ALBUTEROL SULF 2.5 MG/0.5ML(0.5%) NEB SOLN NEB SCH ×4 (00:33→19:17)
[2020-04-01] MEDS: FUROSEMIDE 100 MG/10ML VIAL IV SCH ×2 (04:22→18:47)
[2020-04-01] MEDS: LINEZOLID 600MG/300ML 300 ML IV SCH ×2 (04:58→18:47)
[2020-04-01 05:00] VITALS: BP 127/76
[2020-04-01 06:47] VITALS: BP 127/76
[2020-04-01 09:00] VITALS: BP 155/95
[2020-04-01] MEDS: DOXYCYCLINE 100 MG TAB/CAP PO SCH ×2 (09:23→21:58)
[2020-04-01] MEDS: SACUBITRIL-VALSARTAN 24mg/26mg TAB PO SCH ×2 (09:23→21:57)
[2020-04-01] MEDS: FLORASTOR (S. BOULARDII) 250 MG CAP PO SCH ×2 (09:23→21:57)
[2020-04-01] MEDS: PIPERACILLIN-TAZOB 3.375GM 100 ML IV SCH ×3 (09:24→21:56)
[2020-04-01] MEDS: METOPROLOL TARTRATE 25 MG TAB PO SCH ×2 (09:24→21:57)
[2020-04-01] MEDS: PANTOPRAZOLE 40 MG/10 ML VIAL INJ IV SCH (09:24)
[2020-04-01] MEDS ORDERED: METOPROLOL TARTRATE 1MG/1ML-5ML VIAL IV PRN (10:00)
[2020-04-01 13:00] VITALS: BP 139/81
[2020-04-01 17:11] VITALS: BP 148/88
[2020-04-01 22:00] VITALS: BP 128/73
[2020-04-02] MEDS: ALBUTEROL SULF 2.5 MG/0.5ML(0.5%) NEB SOLN NEB SCH ×4 (00:35→18:47)
[2020-04-02] MEDS: IPRATROPIUM BROM 0.5 MG/2.5ML INH SOL NEB SCH ×4 (00:35→18:47)
[2020-04-02] MEDS: ACETAMINOPHEN 325 MG TAB PO PRN ×2 (01:28→11:44)
[2020-04-02] MEDS: PIPERACILLIN-TAZOB 3.375GM 100 ML IV SCH ×3 (03:04→14:11)
[2020-04-02 05:00] VITALS: BP 145/80
[2020-04-02] MEDS: LINEZOLID 600MG/300ML 300 ML IV SCH (05:55)
[2020-04-02] MEDS: FUROSEMIDE 100 MG/10ML VIAL IV SCH (05:56)
[2020-04-02 06:12] LABS: Basophils # (auto) 0.1 10 ^3/uL (0-0.2); Basophils % (auto) 1.2 % (0.0-2.0); Eosinophils # (auto) 0 10 ^3/uL (0-0.8); Eosinophils % (auto) 0.3 % (0.0-7.0); Hematocrit 32.5 % (41.0-53.0); Hemoglobin 10.1 g/dL (13.5-17.5); Lymphocytes # (auto) 1.4 10 ^3/uL (0.4-5.4); Lymphocytes % (auto) 17.3 % (10.0-50.0); Mean Corpuscular Hemoglobin 21.4 pg (28.0-32.0); Mean Corpuscular Hgb Conc. 31.2 g/dL (32.0-36.0); Mean Corpuscular Volume 68.8 fL (80.0-100.0); Monocytes # (auto) 0.5 10 ^3/uL (0-1.3); Monocytes % (auto) 5.7 % (0.0-12.0); Neutrophils # (auto) 6.3 10 ^3/uL (1.6-8.6); Neutrophils % (auto) 75.5 % (37.0-80.0); Platelet Count (auto) 196 10^3/uL (140-450); Red Blood Cells 4.73 10^6/uL (4.5-5.90); Red Cell Distribution Width 18.8 % (11.8-14.3); White Blood Cell 8.4 10^3/uL (4.4-10.8)
[2020-04-02 06:38] LABS: Albumin 2.4 g/dL (3.4-5.0); Potassium 3.5 mmol/L (3.5-5.1)
[2020-04-02 06:42] LABS: BUN/Creatinine Ratio 27.6; Bilirubin, Total 0.6 mg/dL (0.2-1.0); Calcium 8.2 mg/dL (8.5-10.1); Magnesium 2.5 mg/dL (1.6-2.6); Total Protein 6.8 g/dL (6.4-8.2)
[2020-04-02 09:00] VITALS: BP 135/83
[2020-04-02] MEDS: PANTOPRAZOLE 40 MG/10 ML VIAL INJ IV SCH (10:28)
[2020-04-02] MEDS: SACUBITRIL-VALSARTAN 24mg/26mg TAB PO SCH ×2 (10:28→22:38)
[2020-04-02] MEDS: FLORASTOR (S. BOULARDII) 250 MG CAP PO SCH ×2 (10:28→22:38)
[2020-04-02] MEDS: DOXYCYCLINE 100 MG TAB/CAP PO SCH ×2 (10:29→22:40)
[2020-04-02] MEDS: METOPROLOL TARTRATE 25 MG TAB PO SCH ×2 (10:29→22:39)
[2020-04-02 13:00] VITALS: BP 120/78
[2020-04-02 17:07] VITALS: BP 142/77
[2020-04-02 22:00] VITALS: BP 150/71
[2020-04-03] MEDS: AMIODARONE 450mg/250ml AE 250 ML IV SCH ×2 (00:18→10:48)
[2020-04-03] MEDS: IPRATROPIUM BROM 0.5 MG/2.5ML INH SOL NEB SCH ×4 (00:33→19:10)
[2020-04-03] MEDS: ALBUTEROL SULF 2.5 MG/0.5ML(0.5%) NEB SOLN NEB SCH ×4 (00:33→19:10)
[2020-04-03 05:00] VITALS: BP 143/84
[2020-04-03] MEDS ORDERED: IPRATROPIUM BROM 0.5 MG/2.5ML INH SOL ONE (06:05)
[2020-04-03] MEDS ORDERED: ALBUTEROL SULF 2.5 MG/0.5ML(0.5%) NEB SOLN ONE (06:05)
[2020-04-03 08:40] VITALS: BP 119/72
[2020-04-03] MEDS: SACUBITRIL-VALSARTAN 24mg/26mg TAB PO SCH ×2 (10:17→22:32)
[2020-04-03] MEDS: PANTOPRAZOLE 40 MG/10 ML VIAL INJ IV SCH (10:18)
[2020-04-03] MEDS: DOXYCYCLINE 100 MG TAB/CAP PO SCH ×2 (10:18→22:33)
[2020-04-03] MEDS: METOPROLOL TARTRATE 25 MG TAB PO SCH ×2 (10:19→12:14)
[2020-04-03] MEDS: FLORASTOR (S. BOULARDII) 250 MG CAP PO SCH ×2 (10:22→22:00)
[2020-04-03 12:46] VITALS: BP 134/77
[2020-04-03] MEDS: HYDROcodone-ACET 5/325MG TAB PO PRN (15:02)
[2020-04-03 17:00] VITALS: BP 138/73
[2020-04-03] MEDS ORDERED: dilTIAZem 25 MG/5 ML VIAL IV PRN (17:15)
[2020-04-03] MEDS ORDERED: dilTIAZem 25 MG/5 ML VIAL IV ONE (18:00)
[2020-04-03 18:08] LABS: Potassium 3.2 mmol/L (3.5-5.1)
[2020-04-03 18:11] LABS: Magnesium 2.3 mg/dL (1.6-2.6)
[2020-04-03] MEDS ORDERED: POTASSIUM CHL 20 Meq TABLET PO ONE (19:30)
[2020-04-03] MEDS ORDERED: METOPROLOL TARTRATE 1MG/1ML-5ML VIAL IV PRN (20:30)
[2020-04-03] MEDS ORDERED: ENOXAPARIN SOD 120 MG/0.8 ML SYRINGE SC ONE (20:45)
[2020-04-03 22:00] VITALS: BP 143/81
[2020-04-04] MEDS: IPRATROPIUM BROM 0.5 MG/2.5ML INH SOL NEB SCH ×3 (01:35→11:34)
[2020-04-04] MEDS: ALBUTEROL SULF 2.5 MG/0.5ML(0.5%) NEB SOLN NEB SCH ×3 (01:35→11:34)
[2020-04-04] MEDS ORDERED: AMIODARONE HCL 75 MG in D5W 5% 100 ML IV ONE (02:15)
[2020-04-04] MEDS ORDERED: AMIODARONE HCL (50 MG/ ML) 3 ML VIAL IV ONE (02:22)
[2020-04-04] MEDS: AMIODARONE 450mg/250ml AE 250 ML IV SCH (03:46)
[2020-04-04 05:00] VITALS: BP 138/79
[2020-04-04 07:04] LABS: Calcium 8.3 mg/dL (8.5-10.1); Potassium 3.2 mmol/L (3.5-5.1)
[2020-04-04 07:07] LABS: BUN/Creatinine Ratio 24.8
[2020-04-04] MEDS: DOXYCYCLINE 100 MG TAB/CAP PO SCH (09:49)
[2020-04-04] MEDS: PANTOPRAZOLE 40 MG/10 ML VIAL INJ IV SCH (09:50)
[2020-04-04] MEDS: FLORASTOR (S. BOULARDII) 250 MG CAP PO SCH (09:50)
[2020-04-04] MEDS: SACUBITRIL-VALSARTAN 24mg/26mg TAB PO SCH (09:57)
[2020-04-04] MEDS: HYDROcodone-ACET 5/325MG TAB PO PRN (09:57)
[2020-04-04] MEDS ORDERED: ENOXAPARIN SOD 60 MG/0.6 ML SYRINGE SC SCH (10:00)
[2020-04-04] MEDS: METOPROLOL TARTRATE 25 MG TAB PO SCH (10:00)
[2020-04-04] MEDS ORDERED: AMIODARONE HCL 200 MG TAB PO ONE (11:15)
[2020-04-04 12:55] VITALS: BP 123/93
[2020-04-04] MEDS ORDERED: AMIO200T4 PO (13:38)
[2020-04-04] MEDS ORDERED: ASPI-404 PO (13:38)
[2020-04-04] MEDS ORDERED: SACU1TAB PO (13:38)
[2020-04-04] MEDS ORDERED: TAMS0.4C36 PO (13:38)
[2020-04-04] MEDS ORDERED: METF-370 PO (13:38)
[2020-04-04] MEDS ORDERED: ATOR40TA52 PO (13:38)
[2020-04-04] MEDS ORDERED: GLIP10TA9 PO (13:38)
[2020-04-04] MEDS ORDERED: POTA10TA79 PO (13:38)
[2020-04-04] MEDS ORDERED: APIX5TAB PO (13:38)
[2020-04-04] MEDS ORDERED: FURO1TAB31 PO (13:38)
[2020-04-04] MEDS ORDERED: CARV25TA55 PO (13:38)
[2020-04-04 15:06] VITALS: BP 123/93
[2020-04-04 17:00] VITALS: BP 154/83
[2020-04-04 17:19] VITALS: BP 123/93
[2020-04-04] MEDS ORDERED: AMIODARONE HCL 200 MG TAB PO SCH (22:00)
== END 2020-04-04 18:08 | disposition home health service (06) | DRG 161 ==
LOC: ER 05:24 → EDBD 05:24 → OVERFLOW 05:25 → ICU WEST 11:46 → TELE-WESTW 03-29 17:11
PROVIDERS: ADMIT Nurse Practitioner; ATTEND Internal Medicine
PROC: 5A1955Z Respiratory Ventilation, Greater than 96 Consecutive Hours (ICD-10-PCS; 2020-03-21)
PROC: 0BH17EZ Insertion of Endotracheal Airway into Trachea, Via Natural or Artificial Opening (ICD-10-PCS; 2020-03-21)
PROC: 02HV33Z Insertion of Infusion Device into Superior Vena Cava, Percutaneous Approach (ICD-10-PCS; 2020-03-21)
PROC: 02H63KZ Insertion of Defibrillator Lead into Right Atrium, Percutaneous Approach (ICD-10-PCS; principal; 2020-03-30)
PROC: 0JH608Z Insertion of Defibrillator Generator into Chest Subcutaneous Tissue and Fascia, Open Approach (ICD-10-PCS; 2020-03-30)
PROC: 02HK3KZ Insertion of Defibrillator Lead into Right Ventricle, Percutaneous Approach (ICD-10-PCS; 2020-03-30)
PROC: 02HL3KZ Insertion of Defibrillator Lead into Left Ventricle, Percutaneous Approach (ICD-10-PCS; 2020-03-30)
DX: I13.0 Hypertensive heart and chronic kidney disease with heart failure and stage 1 through stage 4 chronic kidney disease, or unspecified chronic kidney disease (principal); J96.01 Acute respiratory failure with hypoxia; N17.0 Acute kidney failure with tubular necrosis; J18.9 Pneumonia, unspecified organism; E11.22 Type 2 diabetes mellitus with diabetic chronic kidney disease; E11.40 Type 2 diabetes mellitus with diabetic neuropathy, unspecified; E44.0 Moderate protein-calorie malnutrition; I50.23 Acute on chronic systolic (congestive) heart failure; J44.0 Chronic obstructive pulmonary disease with (acute) lower respiratory infection; N18.3 Chronic kidney disease, stage 3 (moderate); R78.81 Bacteremia; D63.8 Anemia in other chronic diseases classified elsewhere; D72.829 Elevated white blood cell count, unspecified; E66.01 Morbid (severe) obesity due to excess calories; G47.33 Obstructive sleep apnea (adult) (pediatric); E87.1 Hypo-osmolality and hyponatremia; K21.9 Gastro-esophageal reflux disease without esophagitis; M10.9 Gout, unspecified; E78.00 Pure hypercholesterolemia, unspecified; E78.5 Hyperlipidemia, unspecified; Z68.41 Body mass index [BMI] 40.0-44.9, adult; Z03.818 Encounter for observation for suspected exposure to other biological agents ruled out; Z95.810 Presence of automatic (implantable) cardiac defibrillator; Z82.49 Family history of ischemic heart disease and other diseases of the circulatory system; Z83.3 Family history of diabetes mellitus; Z79.899 Other long term (current) drug therapy; Z79.82 Long term (current) use of aspirin; Z79.84 Long term (current) use of oral hypoglycemic drugs
CPT/HCPCS: 31500; 33249; 36415; 36600; 71045; 80048; 80053; 81001; 82040; 82728; 82805; 82962; 83036; 83605; 83615; 83735; 83880; 84100; 84132; 84443; 84478; 84484; 85014; 85018; 85025; 85379; 85610; 85730; 86141; 87040; 87070; 87077; 87081; 87186; 87205; 87804; 87880; 93005; 93306; 93970; 94002; 94003; 94640; 97116; 97163; 97530; 99152; 99153; 99291; C9113; G0378; J0690; J1815; J2250; J2405; J2543; J2704; J3480; J7060; J7131; Q9967

== ENCOUNTER 2020-05-07 07:56 | Inpatient (IN) | payer MEDICAID ==
[~2020-05-07] VITALS: Ht 172.7 cm; Wt 109.6 kg
[~2020-05-07 07:56] MED LIST changes: -ALLO100T; +ALLO100T PO; +AMIO200T4 PO; -AMLO10TA13; +APIX5TAB PO; +ASPI-404 PO; -ATOR1TAB; +ATOR40TA52 PO; -CANA300T; -CARV12.544; +CARV25TA55 PO; -CHOL20002; +CHOL200029 PO; -DICY10CA12; -DOCU100C8; -FUR20T; +FURO1TAB31 PO; -GABA400C11; -GLIP10TA9; +GLIP10TA9 PO; -GLUC-244; -LANC30MI; -LISI40TA; -MAGN241.6; +METF-370 PO; -METF-372; +POTA10TA79 PO; -POTA1CAP; +SACU1TAB PO; -SPIR25TA8; +TAMS0.4C36 PO
[2020-05-07 08:31] LABS: Basophils # (auto) 0.1 10 ^3/uL (0-0.2); Eosinophils # (auto) 0 10 ^3/uL (0-0.8); Hemoglobin 9.1 g/dL (13.5-17.5); Mean Corpuscular Hemoglobin 20.8 pg (28.0-32.0); Monocytes # (auto) 0.4 10 ^3/uL (0-1.3); Nucleated Red Blood Cells % 0.1 %
[2020-05-07 08:33] LABS: Basophils % (auto) 0.9 % (0.0-2.0); Eosinophils % (auto) 0.5 % (0.0-7.0); Hematocrit 29.5 % (41.0-53.0); Lymphocytes % (auto) 15.5 % (10.0-50.0); Mean Corpuscular Volume 67.2 fL (80.0-100.0); Neutrophils # (auto) 4.9 10 ^3/uL (1.6-8.6); Neutrophils % (auto) 77.1 % (37.0-80.0); Platelet Count (auto) 166 10^3/uL (140-450); Red Blood Cells 4.39 10^6/uL (4.5-5.90); Red Cell Distribution Width 19.1 % (11.8-14.3); White Blood Cell 6.3 10^3/uL (4.4-10.8)
[2020-05-07 08:46] LABS: Albumin 3.1 g/dL (3.4-5.0); Anion Gap 7 (5-15); Blood Urea Nitrogen 25 mg/dL (7-18); Calcium 8.5 mg/dL (8.5-10.1); Carbon Dioxide 23 mmol/L (21-32); Chloride 108 mmol/L (98-107); Glucose 95 mg/dL (74-106); Potassium 4.8 mmol/L (3.5-5.1); Sodium 138 mmol/L (136-145)
[2020-05-07 08:52] LABS: Alanine Aminotransferase 34 U/L (16-61); Alkaline Phosphatase 98 U/L (45-117); Aspartate Aminotransferase 17 U/L (15-37); BUN/Creatinine Ratio 20.2; Bilirubin, Total 0.7 mg/dL (0.2-1.0); GFR African American 78 mL/min; GFR Non-African American 65 mL/min; Total Protein 7.4 g/dL (6.4-8.2)
[2020-05-07] MEDS ORDERED: ENALAPRILAT 1.25 MG/ML-1ML VIAL IV ONE (11:30)
[2020-05-07] MEDS ORDERED: NITROGLYCERIN 0.2MG/HR TOPICAL PATCH TD ONE (11:30)
[2020-05-07] MEDS ORDERED: DEXTROSE (50%) 50ML SYRG IV PRN (12:00)
[2020-05-07] MEDS ORDERED: MORPHINE SULF INJ 2 MG/ML SYRINGE 1ML IV PRN (12:00)
[2020-05-07] MEDS ORDERED: FUROSEMIDE 40 MG/4 ML VIAL IV ONE (12:00)
[2020-05-07] MEDS ORDERED: NITROGLYCERIN 0.4 MG SL TAB SL PRN (12:00)
[2020-05-07] MEDS ORDERED: APIXABAN 5 MG TAB PO ONE (12:15)
[2020-05-07] MEDS ORDERED: ALLOPURINOL 100 MG TAB PO ONE (12:30)
[2020-05-07] MEDS ORDERED: CARVEDILOL 12.5 MG TAB PO ONE (12:30)
[2020-05-07] MEDS ORDERED: ASPirin-EC 81 mg tab PO ONE (12:30)
[2020-05-07] MEDS ORDERED: AMIODARONE HCL 200 MG TAB PO ONE (12:30)
[2020-05-07] MEDS ORDERED: ACETAMINOPHEN 325 MG TAB PO ONE ×2 (16:19→16:30)
[2020-05-07] MEDS: InsuLIN REG 1unit/0.01ml Soln (100units/ml) SC SCH ×2 (17:00→22:46)
[2020-05-07] MEDS: ACCU-CHEK COMFORT CURVE STRIP VI SCH ×2 (17:11→22:46)
[2020-05-07] MEDS: FUROSEMIDE 40 MG/4 ML VIAL IV SCH (17:53)
[2020-05-07] MEDS: TAMSULOSIN HYDROCHLORIDE 0.4 MG CAP PO SCH (17:53)
--- NOTE | 2020-05-07 22:20 | NUR ---
Telemetry admit from ER GENEVIEVE GRIFFITHS admitted to Telemetry unit after SBAR received. Patient oriented to Leann Mendieta, primary RN, unit, room, bed, and unit policies regarding patient care and visiting hours. Patient now on continuous telemetry monitoring, tele box # [54] and telemetry reading on arrival to unit is [SR 89 WITH BBB]. Patient placed on bedside oxygen, weighed by bedscale and encouraged to call if they need something. All questions and concerns addressed, patient verbalized understanding. Note: []
[2020-05-07] MEDS: ATORVASTATIN 20 MG TAB PO SCH (22:42)
[2020-05-07] MEDS: CARVEDILOL 12.5 MG TAB PO SCH (22:43)
[2020-05-07] MEDS: SACUBITRIL-VALSARTAN 24mg/26mg TAB PO SCH (22:43)
[2020-05-07] MEDS: APIXABAN 5 MG TAB PO SCH (22:44)
[2020-05-07] MEDS: AMIODARONE HCL 200 MG TAB PO SCH (22:45)
--- NOTE | 2020-05-07 22:50 | NUR ---
ACCU-CHECK, BS 118. NO COVERAGE. CONTINUE TO MONITOR.
[2020-05-07 23:01] VITALS: BP 145/86
[2020-05-07 23:05] VITALS: BP 145/86
[2020-05-07] MEDS ORDERED: AMLO5TAB15 PO (23:41)
[2020-05-07] MEDS ORDERED: CAR125T PO (23:41)
[2020-05-07] MEDS ORDERED: BENZ1CAP24 PO (23:45)
[2020-05-07] MEDS ORDERED: SPIR25TA88 PO (23:45)
[2020-05-07] MEDS ORDERED: DOCU-94 PO (23:45)
--- NOTE | 2020-05-08 00:16 | NUR ---
HOSPITALIST Called/paged CA HAYWARD called re PATIENT WOULD LIKE TO HAVE PAIN MEDICATION FOR HIS BACK PAIN @ 04/08 . Waiting for call back. Continue care.
--- NOTE | 2020-05-08 00:42 | NUR ---
HOSPITALIST returned call CA HAYWARD returned call, updated on patient status and reason for call, orders received. TYLENOL 650 MG Q6HP Continue care.
[2020-05-08] MEDS: ACETAMINOPHEN 325 MG TAB PO PRN ×3 (01:36→22:37)
--- NOTE | 2020-05-08 02:17 | NUR ---
HOSPITALIST Called/paged CA HAYWARD called re PATIENT WOULD LIKE TO HAVE CPAP SINCE HE WARES IT AT HOME EVERY NIGHT. Waiting for call back. Continue care.
--- NOTE | 2020-05-08 02:20 | NUR ---
REASSESSED PAIN 0/10. CONTINUE TO MONITOR.
--- NOTE | 2020-05-08 02:48 | NUR ---
HOSPITALIST returned call CA HAYWARD returned call, updated on patient status and reason for call, orders received. Continue care.
--- NOTE | 2020-05-08 02:49 | NUR ---
RT PAGED FOR CPAP
--- NOTE | 2020-05-08 03:01 | NUR ---
Respiratory note: PLACED PT ON CPAP. PT ON SIZE (M) MASK NO FACIAL BREAKDOWN NOTED PRIOR TO PLACEMENT, WATER CHAMBER FILLED, 2LPM O2 BLEED IN. CONTINUOS POX AT BEDSIDE PER PROTOCOL PROBE ON RIGHT INDEX FINGER, RN GUALBERTO COMMUNICATED ON PLACEMENT AND SETTINGS. PT AWARE I F HE HAS ANY CONCERNS WITH EQUIPMENT OR HIS BREATHING HE CAN HAVE ME PAGED. WILL CONTINUE TO MONITOR PT Q2H AN NEEDED.
[2020-05-08 03:33] VITALS: BP 147/83
--- NOTE | 2020-05-08 04:31 | NUR ---
Respiratory note: PT OFF CPAP ON 2LPM NC. DENISSE BURCIAGA MADE AWARE.
[2020-05-08 05:00] VITALS: BP 135/78
[2020-05-08] MEDS: FUROSEMIDE 40 MG/4 ML VIAL IV SCH ×2 (06:24→17:11)
[2020-05-08] MEDS: ACCU-CHEK COMFORT CURVE STRIP VI SCH ×4 (06:25→21:49)
[2020-05-08] MEDS: InsuLIN REG 1unit/0.01ml Soln (100units/ml) SC SCH ×4 (06:25→21:51)
--- NOTE | 2020-05-08 06:26 | NUR ---
ACCU-CHECK, BS 109. NO COVERAGE. CONTINUE TO MONITOR.
--- NOTE | 2020-05-08 08:20 | NUR ---
Opening Note Assumed pt care from NOC RN. Pt is a/ox4 with no s/s of distress or SOB. Pt is currently sitting at edge of bed with mild c/o pain to lower back 5/10; discussed pain relieving measures. Discussed POC with pt and pending cardio consult; pt verbalized understanding. Safety measures maintained with call light within reach, bed in lowest position and side rails up. Will continue to monitor for changes.
[2020-05-08 09:00] VITALS: BP 127/75
[2020-05-08] MEDS: ASPirin-EC 81 mg tab PO SCH (09:01)
[2020-05-08] MEDS: SACUBITRIL-VALSARTAN 24mg/26mg TAB PO SCH ×2 (09:01→22:08)
[2020-05-08] MEDS: CARVEDILOL 12.5 MG TAB PO SCH ×2 (09:02→22:08)
[2020-05-08] MEDS: APIXABAN 5 MG TAB PO SCH ×2 (09:02→22:08)
[2020-05-08] MEDS: AMIODARONE HCL 200 MG TAB PO SCH ×2 (09:02→22:07)
[2020-05-08] MEDS: ALLOPURINOL 100 MG TAB PO SCH (09:02)
[2020-05-08] MEDS ORDERED: BUDE1AER4 IN (11:54)
[2020-05-08] MEDS ORDERED: INSU1INJ19 SC (11:54)
[2020-05-08] MEDS ORDERED: DOCU-94 PO (11:54)
[2020-05-08] MEDS ORDERED: CAR125T PO (11:54)
[2020-05-08] MEDS ORDERED: METF-929 PO (11:54)
[2020-05-08] MEDS ORDERED: SPIR25TA88 PO (11:54)
[2020-05-08] MEDS ORDERED: BENZ1CAP24 PO (11:54)
[2020-05-08] MEDS ORDERED: AMIO200T4 PO (11:54)
[2020-05-08] MEDS ORDERED: SEMA2INJ SC (11:55)
[2020-05-08] MEDS ORDERED: LOSA25TA38 PO (11:55)
[2020-05-08] MEDS ORDERED: PANT40TA2 PO (11:55)
[2020-05-08] MEDS ORDERED: ERTU15TA PO (11:55)
[2020-05-08] MEDS ORDERED: ALBU108A5 IN (11:55)
[2020-05-08] MEDS ORDERED: SITA100T7 PO (11:55)
[2020-05-08 13:00] VITALS: BP 125/76
[2020-05-08 17:00] VITALS: BP 131/82
[2020-05-08] MEDS: TAMSULOSIN HYDROCHLORIDE 0.4 MG CAP PO SCH (17:11)
--- NOTE | 2020-05-08 19:20 | NUR ---
opening note pt is A&Ox4. pt watching tv in car at bedside. respirations even and nonlabored on 2Lnc. POC discussed with pt. call light is within reach. pt is ambulatory.
[2020-05-08 22:00] VITALS: BP 139/72
[2020-05-08] MEDS: ATORVASTATIN 20 MG TAB PO SCH (22:08)
--- NOTE | 2020-05-08 22:30 | NUR ---
pain pt c/o pain back pain. medication will be administered appropriately.
--- NOTE | 2020-05-08 22:42 | NUR ---
Respiratory note: SPOKE WITH PT ABOUT GOING ON CPAP FOR NOC USE. PT REFUSED TO GO ON AND THIS TIME AND STATES HE DOESN'T KNOW WHEN HE WANTS TO GO ON TONIGHT. PT CURRENTLY ON NC2L WITH NO SIGNS OF RESP DISTRESS NOTED. SPO2 97%, HR 87, RR 20. BS CLR/DIM T/O. WILL CONTINUE TO MONITOR PT T/O SHIFT.
[2020-05-09 05:15] VITALS: BP 130/67
[2020-05-09 05:53] LABS: Basophils # (auto) 0 10 ^3/uL (0-0.2); Eosinophils # (auto) 0.1 10 ^3/uL (0-0.8); Hemoglobin 9.1 g/dL (13.5-17.5); Lymphocytes # (auto) 1.6 10 ^3/uL (0.4-5.4); Monocytes # (auto) 0.3 10 ^3/uL (0-1.3); Nucleated Red Blood Cells % 0.1 %; White Blood Cell 4.8 10^3/uL (4.4-10.8)
[2020-05-09 05:56] LABS: Basophils % (auto) 0.8 % (0.0-2.0); Eosinophils % (auto) 1.2 % (0.0-7.0); Hematocrit 28.7 % (41.0-53.0); Lymphocytes % (auto) 33.9 % (10.0-50.0); Mean Corpuscular Hemoglobin 21.1 pg (28.0-32.0); Mean Corpuscular Hgb Conc. 31.8 g/dL (32.0-36.0); Mean Corpuscular Volume 66.5 fL (80.0-100.0); Monocytes % (auto) 6.9 % (0.0-12.0); Neutrophils # (auto) 2.7 10 ^3/uL (1.6-8.6); Neutrophils % (auto) 57.2 % (37.0-80.0); Platelet Count (auto) 189 10^3/uL (140-450); Red Blood Cells 4.32 10^6/uL (4.5-5.90); Red Cell Distribution Width 18.7 % (11.8-14.3)
[2020-05-09 06:03] LABS: Potassium 4.2 mmol/L (3.5-5.1)
[2020-05-09 06:27] LABS: Calcium 8.7 mg/dL (8.5-10.1)
[2020-05-09] MEDS: InsuLIN REG 1unit/0.01ml Soln (100units/ml) SC SCH ×4 (06:30→22:00)
[2020-05-09] MEDS: ACCU-CHEK COMFORT CURVE STRIP VI SCH ×4 (06:30→22:00)
[2020-05-09 06:38] LABS: % Iron Saturation 7.5 % (20-55)
[2020-05-09] MEDS: FUROSEMIDE 40 MG/4 ML VIAL IV SCH ×2 (06:38→17:18)
--- NOTE | 2020-05-09 07:24 | NUR ---
Opening Note Assumed pt care from NOC RN. Pt is a/ox4 with no s/s of distress or SOB. Pt is currently sitting upright in bed on 2L via NC. Discussed POC with pt; pt verbalized understanding. Safety measures are maintained with call light within reach, bed in lowest position and side rails up. Will continue to monitor.
--- NOTE | 2020-05-09 07:38 | NUR ---
closing note pt sitting at edge of bed. pt denies pain or discomfort at this time, says he "feels better". respirations even and nonlabore on 2Lnc. bed in low locked position, call light within reach.
--- NOTE | 2020-05-09 07:45 | NUR ---
PT OFF NOC BIPAP AT THIS TIME. PT ON 2L NC WITH SPO2 97%, HR 80, RR 15. NO DISTRESS NOTED. WILL CONTINUE TO MONITOR PT.
[2020-05-09] MEDS: SACUBITRIL-VALSARTAN 24mg/26mg TAB PO SCH (08:18)
[2020-05-09] MEDS: ASPirin-EC 81 mg tab PO SCH (08:19)
[2020-05-09] MEDS: AMIODARONE HCL 200 MG TAB PO SCH ×2 (08:19→22:41)
[2020-05-09] MEDS: CARVEDILOL 12.5 MG TAB PO SCH ×2 (08:19→22:40)
[2020-05-09] MEDS: APIXABAN 5 MG TAB PO SCH ×2 (08:19→22:42)
[2020-05-09] MEDS: ALLOPURINOL 100 MG TAB PO SCH (08:19)
[2020-05-09 09:00] VITALS: BP 123/63
[2020-05-09] MEDS: ACETAMINOPHEN 325 MG TAB PO PRN ×2 (10:18→20:29)
--- NOTE | 2020-05-09 10:30 | NUR ---
IV Insertion and Removal 20G to pt's L forearm inserted. One attempt made, using clean sterile technique. Pt tolerated well. 22 to pt's R AC removed. Catheter was removed fully intact. Site is asymptomatic. Pressure was applied to site for 3 minutes with gauze and then wrapped in coban. Pt instructed to keep dressing on for 30 minutes.
[2020-05-09 13:00] VITALS: BP 132/80
[2020-05-09] MEDS: TAMSULOSIN HYDROCHLORIDE 0.4 MG CAP PO SCH (17:18)
[2020-05-09 17:27] VITALS: BP 130/77
--- NOTE | 2020-05-09 19:30 | NUR ---
Respiratory note: AT BEDSIDE TO ASSESS PT PT STATES HE HAS BEEN FEELING MUCH BETTER TODAY AND HE WONT BE GOING ON CPAP TONIGHT. EXPLAINED TO PT BENEFITS OF CPAP. PT STILL REFUSING.
[2020-05-09 20:00] VITALS: BP 130/77
[2020-05-09] MEDS: IRON SUCROSE COMPLEX 200 MG in SODIUM CHL 0.9% 100 ML IV SCH (21:00)
[2020-05-09 22:00] VITALS: BP 128/72
[2020-05-09] MEDS: ATORVASTATIN 20 MG TAB PO SCH (22:38)
[2020-05-10] MEDS: ACETAMINOPHEN 325 MG TAB PO PRN ×3 (03:14→20:32)
[2020-05-10 05:00] VITALS: BP 132/78
[2020-05-10 06:16] LABS: BUN/Creatinine Ratio 24.3; Calcium 8.6 mg/dL (8.5-10.1); Potassium 4.7 mmol/L (3.5-5.1)
[2020-05-10] MEDS: InsuLIN REG 1unit/0.01ml Soln (100units/ml) SC SCH ×4 (06:46→22:34)
[2020-05-10] MEDS: ACCU-CHEK COMFORT CURVE STRIP VI SCH ×4 (06:47→22:22)
--- NOTE | 2020-05-10 07:03 | NUR ---
PT STATES HE IS GOING TO GO HOME TODAY IF DR VELASQUEZ DOESNT COME TO SEE HIM. FILM LOADER SHASHI QUACHNED IN CONSULT FROM April. PT REFUSING 2 UNITS OF INSULIN FOR A BLOOD SUGAR OF 136 BECAUSE HE STATES THAT HE WILL PROBABLY NEED MORE INSULIN AFTER BREAKFAST AND HE DOESNT WANT TO KEEP GETTING POKED. CALL LIGHT IN REACH WITH NO DISTRESS OBSERVED.
--- NOTE | 2020-05-10 08:00 | NUR ---
OPENING SHIFT NOTE: PATIENT RESTING AT BEDSIDE IN CHAIR. A/OX4, ADDRESSED CONCERNS, CALL LIGHT WITHIN REACH. PROSTHETIC ON PATIENT ABLE TO AMBULATE. FALL PRECAUTIONS IN PLACE, RESPIRATIONS EVEN AND UNLABORED. WILL CONTINUE TO MONITOR.
[2020-05-10 08:37] VITALS: BP 139/86
[2020-05-10] MEDS: CARVEDILOL 12.5 MG TAB PO SCH ×2 (09:50→22:21)
[2020-05-10] MEDS: AMIODARONE HCL 200 MG TAB PO SCH ×2 (09:50→22:21)
[2020-05-10] MEDS: FUROSEMIDE 20 MG/2 ML VIAL IV SCH (09:50)
[2020-05-10] MEDS: ASPirin-EC 81 mg tab PO SCH (09:51)
[2020-05-10] MEDS: ALLOPURINOL 100 MG TAB PO SCH (09:51)
[2020-05-10] MEDS: APIXABAN 5 MG TAB PO SCH ×2 (09:51→22:21)
[2020-05-10] MEDS: IRON SUCROSE COMPLEX 200 MG in SODIUM CHL 0.9% 100 ML IV SCH (12:04)
[2020-05-10 13:00] VITALS: BP 127/78
--- NOTE | 2020-05-10 13:53 | NUR ---
Est energy needs [id number] kcal (14-18 kcal/kg BW 113.2kg) Est protein needs 70-84g (1-1.2g/kg IBW 70kg) Will reassess prn. Addendum: 05/10/20 at [address] Amended: Links added.
--- NOTE | 2020-05-10 14:12 | NUR ---
CARDIOLOGY CONSULT RE-CALLED TO MD VELASQUEZ.
[2020-05-10 15:26] VITALS: BP 127/78
[2020-05-10 16:54] VITALS: BP 135/77
[2020-05-10] MEDS: TAMSULOSIN HYDROCHLORIDE 0.4 MG CAP PO SCH (18:23)
--- NOTE | 2020-05-10 18:31 | NUR ---
JEWELRY ESTIMATOR MD ERICKSON AT BEDSIDE, PATIENT STABLE FROM CARDIAC STANDPOINT PER .
--- NOTE | 2020-05-10 19:27 | NUR ---
CARE ENDORSED TO BRADLEY SALCEDO.
[2020-05-10 22:00] VITALS: BP 138/77
[2020-05-10] MEDS: SACUBITRIL-VALSARTAN 24mg/26mg TAB PO SCH (22:20)
[2020-05-10] MEDS: ATORVASTATIN 20 MG TAB PO SCH (22:20)
--- NOTE | 2020-05-10 22:43 | NUR ---
Respiratory note: PT STATES HE WILL HAVE RT PAGED IF HE WANTS TO WEAR CPAP TONIGHT. NO RESPIRATORY DISTRESS NOTED, WILL CONTINUE TO MONITOR.
[2020-05-11] MEDS: ACETAMINOPHEN 325 MG TAB PO PRN ×2 (04:28→10:35)
[2020-05-11 05:00] VITALS: BP 112/64
[2020-05-11] MEDS: ACCU-CHEK COMFORT CURVE STRIP VI SCH ×2 (06:27→12:45)
[2020-05-11] MEDS: InsuLIN REG 1unit/0.01ml Soln (100units/ml) SC SCH ×2 (06:28→12:44)
--- NOTE | 2020-05-11 08:00 | NUR ---
PT. IS AWAKE AND ALERT, SITTING UP IN A CHAIR GETTING READY TO EAT HIS BREAKFAST. NO RESP. DISTRESS OR SOB NOTED. PT. STATED HE DID NOT WANT TO WEAR HIS CPAP LAST NIGHT. PT. DID NOT CALL TO WEAR CPAP LAST NIGHT, PER NOC SHIFT RT. NOTES.
--- NOTE | 2020-05-11 08:18 | NUR ---
OPENING SHIFT NOTE: PATIENT RESTING AT BED A/OX4, ADDRESSED CONCERNS, CALL LIGHT WITHIN REACH. PROSTHETIC ON PATIENT ABLE TO AMBULATE. FALL PRECAUTIONS IN PLACE, RESPIRATIONS EVEN AND UNLABORED. WILL CONTINUE TO MONITOR.
[2020-05-11 09:00] VITALS: BP 118/65
[2020-05-11] MEDS ORDERED: SPIRONOLACTONE 25 MG TAB PO SCH (10:00)
[2020-05-11] MEDS: ALLOPURINOL 100 MG TAB PO SCH (10:11)
[2020-05-11] MEDS: SACUBITRIL-VALSARTAN 24mg/26mg TAB PO SCH (10:11)
[2020-05-11] MEDS: CARVEDILOL 12.5 MG TAB PO SCH (10:11)
[2020-05-11] MEDS: APIXABAN 5 MG TAB PO SCH (10:11)
[2020-05-11] MEDS: FUROSEMIDE 20 MG/2 ML VIAL IV SCH (10:12)
[2020-05-11] MEDS: AMIODARONE HCL 200 MG TAB PO SCH (10:13)
[2020-05-11] MEDS: IRON SUCROSE COMPLEX 200 MG in SODIUM CHL 0.9% 100 ML IV SCH (12:44)
[2020-05-11 13:00] VITALS: BP 131/76
[2020-05-11] MEDS ORDERED: SACU1TAB PO (13:20)
[2020-05-11] MEDS ORDERED: FURO40TA4 PO (13:23)
[2020-05-11 13:45] VITALS: BP 130/59
--- NOTE | 2020-05-11 14:20 | NUR ---
DISCHARGE: PATIENT DISCHARGED ALL EDUCATION GIVEN TO PATIENT. VERBALIZED UNDERSTANDING FOLLOW UP AND PRESCRIPTION SHIPPING AND RECEIVING COORDINATOR AT PHARMACY. TELE RETURNED TO CARDIO UNIT. IV REMOVED. CATHETER INTACT. PATIENT TAKEN DOWN TO MAIN LOBBY FOR PRIVATE AUTO BY THIS RN WITH ALL BELONGINGS.
== END 2020-05-11 14:14 | disposition home or self-care (01) | DRG 194 ==
LOC: ER 07:56 → EDBD 07:56 → TELE 07:57 → TELE-WESTW 21:45
PROVIDERS: ADMIT Nurse Practitioner Acute Care; ATTEND Internal Medicine Nephrology
PROC: 5A09357 Assistance with Respiratory Ventilation, Less than 24 Consecutive Hours, Continuous Positive Airway Pressure (ICD-10-PCS; principal; 2020-05-08)
DX: I13.0 Hypertensive heart and chronic kidney disease with heart failure and stage 1 through stage 4 chronic kidney disease, or unspecified chronic kidney disease (principal); J96.21 Acute and chronic respiratory failure with hypoxia; N17.0 Acute kidney failure with tubular necrosis; I50.43 Acute on chronic combined systolic (congestive) and diastolic (congestive) heart failure; E11.22 Type 2 diabetes mellitus with diabetic chronic kidney disease; D50.9 Iron deficiency anemia, unspecified; I42.8 Other cardiomyopathies; E66.9 Obesity, unspecified; M10.9 Gout, unspecified; E78.5 Hyperlipidemia, unspecified; D63.8 Anemia in other chronic diseases classified elsewhere; K21.9 Gastro-esophageal reflux disease without esophagitis; E78.00 Pure hypercholesterolemia, unspecified; I48.91 Unspecified atrial fibrillation; H57.89 Other specified disorders of eye and adnexa; N18.3 Chronic kidney disease, stage 3 (moderate); Z79.01 Long term (current) use of anticoagulants; Z79.4 Long term (current) use of insulin; Z79.899 Other long term (current) drug therapy; Z80.0 Family history of malignant neoplasm of digestive organs; Z82.3 Family history of stroke; Z82.49 Family history of ischemic heart disease and other diseases of the circulatory system; Z83.3 Family history of diabetes mellitus; Z89.512 Acquired absence of left leg below knee; Z95.810 Presence of automatic (implantable) cardiac defibrillator; Z99.81 Dependence on supplemental oxygen; Z68.38 Body mass index [BMI] 38.0-38.9, adult
CPT/HCPCS: 36415; 36600; 71046; 80048; 80053; 82805; 82962; 83036; 83540; 83550; 83735; 83880; 84484; 85025; 93005; 96374; 96376; G0378; J1756; J1815

== ENCOUNTER → 2020-05-17 | Emergency (ER) | payer MEDICAID ==
[~2020-05-17] VITALS: Ht 167.6 cm; Wt 111.1 kg
[~2020-05-17] MED LIST changes: +ALBU108A5 IN; +AMLO5TAB15 PO; +BENZ1CAP24 PO; +BUDE1AER4 IN; +CAR125T PO; -CARV25TA55 PO; +DOCU-94 PO; +ERTU15TA PO; -FURO1TAB31 PO; +FURO40TA4 PO; +HYDROcodone-ACET 5/325MG TAB PO ONE; +INSU1INJ19 SC; -METF-370 PO; +PANT40TA2 PO; -POTA10TA79 PO; +SEMA2INJ SC; +SITA100T7 PO; +SPIR25TA88 PO
[2020-05-17 21:11] LABS: Basophils # (auto) 0 10 ^3/uL (0-0.2); Basophils % (auto) 0.7 % (0.0-2.0); Eosinophils # (auto) 0.1 10 ^3/uL (0-0.8); Eosinophils % (auto) 2.5 % (0.0-7.0); Hemoglobin 10.1 g/dL (13.5-17.5); Lymphocytes # (auto) 1.6 10 ^3/uL (0.4-5.4); Mean Corpuscular Hemoglobin 20.6 pg (28.0-32.0); Nucleated Red Blood Cells % 0.1 %
[2020-05-17 21:13] LABS: Hematocrit 32.8 % (41.0-53.0); Lymphocytes % (auto) 27.7 % (10.0-50.0); Mean Corpuscular Hgb Conc. 30.8 g/dL (32.0-36.0); Mean Corpuscular Volume 66.9 fL (80.0-100.0); Monocytes # (auto) 0.3 10 ^3/uL (0-1.3); Monocytes % (auto) 4.8 % (0.0-12.0); Neutrophils # (auto) 3.6 10 ^3/uL (1.6-8.6); Neutrophils % (auto) 64.3 % (37.0-80.0); Platelet Count (auto) 233 10^3/uL (140-450); White Blood Cell 5.6 10^3/uL (4.4-10.8)
[2020-05-17 21:31] LABS: Albumin 3.1 g/dL (3.4-5.0); Anion Gap 7 (5-15); BUN/Creatinine Ratio 27.4; Blood Urea Nitrogen 65 mg/dL (7-18); Calcium 8.4 mg/dL (8.5-10.1); Carbon Dioxide 21 mmol/L (21-32); Chloride 108 mmol/L (98-107); GFR African American 37 mL/min; GFR Non-African American 31 mL/min; Glucose 147 mg/dL (74-106); Magnesium 1.9 mg/dL (1.6-2.6); Potassium 4.9 mmol/L (3.5-5.1); Sodium 136 mmol/L (136-145)
[2020-05-17 21:36] LABS: Alanine Aminotransferase 23 U/L (16-61); Alkaline Phosphatase 104 U/L (45-117); Aspartate Aminotransferase 11 U/L (15-37); Bilirubin, Total 0.3 mg/dL (0.2-1.0); Total Protein 7.5 g/dL (6.4-8.2)
[2020-05-17 23:00] VITALS: BP 107/57
== END | disposition home or self-care (01) ==
LOC: ER 19:43
DX: S20.211A Contusion of right front wall of thorax, initial encounter (principal); I13.0 Hypertensive heart and chronic kidney disease with heart failure and stage 1 through stage 4 chronic kidney disease, or unspecified chronic kidney disease; E11.22 Type 2 diabetes mellitus with diabetic chronic kidney disease; N18.9 Chronic kidney disease, unspecified; I50.9 Heart failure, unspecified; J44.9 Chronic obstructive pulmonary disease, unspecified; K21.9 Gastro-esophageal reflux disease without esophagitis; M10.9 Gout, unspecified; E78.5 Hyperlipidemia, unspecified; W01.10XA Fall on same level from slipping, tripping and stumbling with subsequent striking against unspecified object, initial encounter; Y93.89 Activity, other specified; Y92.89 Other specified places as the place of occurrence of the external cause; Y99.8 Other external cause status
CPT/HCPCS: 36415; 71045; 80053; 83735; 83880; 84484; 85025; 93005

== ENCOUNTER 2020-06-15 03:15 | Inpatient (IN) | payer MEDICAID ==
[~2020-06-15] VITALS: Ht 172.7 cm; Wt 115.5 kg
[~2020-06-15 03:15] MED LIST changes: -BENZ1CAP24 PO; +BENZ200C64 PO; -HYDROcodone-ACET 5/325MG TAB PO ONE
[2020-06-15 04:07] LABS: Basophils # (auto) 0 10 ^3/uL (0-0.2); Hemoglobin 11.2 g/dL (13.5-17.5); Lymphocytes # (auto) 1.4 10 ^3/uL (0.4-5.4); Monocytes # (auto) 0.3 10 ^3/uL (0-1.3); Nucleated Red Blood Cells % 0.1 %
[2020-06-15 04:08] LABS: Basophils % (auto) 0.3 % (0.0-2.0); Eosinophils # (auto) 0.2 10 ^3/uL (0-0.8); Eosinophils % (auto) 3.1 % (0.0-7.0); Hematocrit 36.6 % (41.0-53.0); Lymphocytes % (auto) 25.2 % (10.0-50.0); Mean Corpuscular Hemoglobin 21.3 pg (28.0-32.0); Mean Corpuscular Hgb Conc. 30.7 g/dL (32.0-36.0); Mean Corpuscular Volume 69.4 fL (80.0-100.0); Monocytes % (auto) 5.9 % (0.0-12.0); Neutrophils # (auto) 3.6 10 ^3/uL (1.6-8.6); Neutrophils % (auto) 65.5 % (37.0-80.0); Platelet Count (auto) 115 10^3/uL (140-450); Red Blood Cells 5.27 10^6/uL (4.5-5.90); White Blood Cell 5.6 10^3/uL (4.4-10.8)
[2020-06-15 04:19] LABS: Red Cell Distribution Width 22.4 % (11.8-14.3)
[2020-06-15 04:50] LABS: Albumin 3.1 g/dL (3.4-5.0); Calcium 8.1 mg/dL (8.5-10.1); Magnesium 2.3 mg/dL (1.6-2.6); Potassium 4.2 mmol/L (3.5-5.1)
[2020-06-15 04:56] LABS: BUN/Creatinine Ratio 21.4; Bilirubin, Total 0.3 mg/dL (0.2-1.0)
[2020-06-15 06:25] VITALS: BP 162/76
[2020-06-15] MEDS ORDERED: TEMAZEPAM 15 MG CAP PO PRN ×2 (07:15)
[2020-06-15] MEDS ORDERED: DEXTROSE (50%) 50ML SYRG IV PRN ×2 (07:15)
[2020-06-15] MEDS ORDERED: ONDANSETRON HCL 4 MG/2 ML VIAL IV PRN ×2 (07:15)
[2020-06-15] MEDS ORDERED: NITROGLYCERIN 0.4 MG SL TAB SL PRN (07:15)
[2020-06-15] MEDS ORDERED: MORPHINE SULF INJ 2 MG/ML SYRINGE 1ML IV PRN (07:15)
[2020-06-15 07:19] LABS: Urine Bacteria NONE SEEN /hpf (None Seen); Urine Blood Negative /uL (Negative); Urine Hyaline Cast FEW /lpf (0 - 2); Urine Specific Gravity 1.009 (1.001-1.035); Urine WBC 1 /hpf (0 - 3)
--- NOTE | 2020-06-15 07:51 | NUR ---
PT REMOVED FROM BIPAP AND PLACED ON 2L NC. PT IN NO DISTRESS WITH SPO2 94%, HR 82, RR 18. RN MADE AWARE. WILL CONTINUE TO MONITOR PT.
[2020-06-15 07:58] VITALS: BP 162/76
[2020-06-15] MEDS ORDERED: APIX5TAB PO ×2 (10:34→10:42)
[2020-06-15] MEDS ORDERED: INSU1INJ19 SC (10:34)
[2020-06-15] MEDS ORDERED: PATI1POW PO (10:35)
[2020-06-15 11:29] VITALS: BP 175/77
[2020-06-15] MEDS: levoFLOXacin 500MG 100 ML IV SCH (11:54)
[2020-06-15] MEDS: APIXABAN 5 MG TAB PO SCH ×2 (11:54→21:32)
[2020-06-15] MEDS: SACUBITRIL-VALSARTAN 24mg/26mg TAB PO SCH ×2 (11:55→21:31)
[2020-06-15] MEDS: FUROSEMIDE 40 MG TAB PO SCH (11:56)
[2020-06-15] MEDS: CARVEDILOL 12.5 MG TAB PO SCH ×2 (11:57→21:32)
[2020-06-15] MEDS: amLODIPine BESYLATE 5 MG TAB PO SCH (11:58)
[2020-06-15] MEDS: AMIODARONE HCL 200 MG TAB PO SCH (11:58)
[2020-06-15] MEDS: PANTOPRAZOLE 40 MG TAB PO SCH (11:58)
[2020-06-15] MEDS: ALLOPURINOL 100 MG TAB PO SCH (11:59)
[2020-06-15] MEDS: ACCU-CHEK COMFORT CURVE STRIP VI SCH ×2 (11:59→17:52)
[2020-06-15] MEDS ORDERED: InsuLIN REG 1unit/0.01ml Soln (100units/ml) SC SCH (12:00)
[2020-06-15] MEDS ORDERED: ACCU-CHEK COMFORT CURVE STRIP VI SCH (12:00)
[2020-06-15] MEDS ORDERED: ALBUTEROL SULF 2.5 MG/0.5ML(0.5%) NEB SOLN NEB SCH (12:00)
[2020-06-15] MEDS: ACETAMINOPHEN 325 MG TAB PO PRN ×2 (12:21→21:39)
[2020-06-15] MEDS: InsuLIN REG 1unit/0.01ml Soln (100units/ml) SC SCH ×2 (12:24→17:57)
[2020-06-15 13:00] VITALS: BP 134/74
[2020-06-15] MEDS: IPRATROPIUM BROM 0.5 MG/2.5ML INH SOL NEB SCH ×2 (13:25→18:51)
[2020-06-15] MEDS: ALBUTEROL SULF 2.5 MG/0.5ML(0.5%) NEB SOLN NEB SCH ×2 (13:25→18:52)
--- NOTE | 2020-06-15 14:50 | NUR ---
Photos taken of bilateral lower extremities. Left leg stump. Patient has left leg prosthesis. Wound care forms placed on the Wound care tray. Camera returned to [facility].
[2020-06-15 16:56] VITALS: BP 159/92
--- NOTE | 2020-06-15 17:02 | NUR ---
WOUND CARE NOTE: Wound care in to see patient per wound care request regarding skin integrity issue that are noted present on admission. Bedside nurse took photograph of patient's skin issue upon admission for reference. Patient is 55 years old male with admitting diagnosis of Acute on Chronic Resp Failure. Patient is resting in bed in Rm. 222B. Patient is awake, alert and oriented. He's self turning and repositioning. His Rigo score is 19 . 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 Wound is red with pink ibis wound, no drainage/odor noted. Patient reported that he got the L BKA stump wound from friction abrasion to his L leg prostheses. Bedside nurse cleansed patient's Lt. BKA stump wound with NS,applied Thera honey gel and covered with Opti foam gentle dressing per MD order. Patient's education given regarding wound care and advised to apply padded dressing when applying prostheses. Patient verbalized understanding and showed his gel elastic stump socks. Patient's Rt randolph noted with 3 small dry intact scabs and brown hemosiderin staining, area is clean and dry, left open to air. No other wound noted, no pressure injury noted. Patient tolerated examination well. No further wound care monitoring needed at this time. RECOMMENDATION: Nursing to continue with EOD/PRN dressing change to Lt BKA stump wound per MD order, reconsult for active wound, pressure injury, Low Rigo score 12 and below. Addendum: 06/15/20 at 1916 by Loni Etienne RN Amended: Links added.
--- NOTE | 2020-06-15 19:25 | NUR ---
Opening Shift Note Assumed care of patient, awake and alert. No S/S of distress/SOB. The patient c/o back pain but states that it is tolerable. Bed is locked in lowest position with call light within reach. Instructed on POC and to call for assist PRN, will continue to monitor for changes Q1hr and PRN.
[2020-06-15] MEDS: ATORVASTATIN 20 MG TAB PO SCH (21:32)
--- NOTE | 2020-06-15 21:35 | NUR ---
PAIN ASSESSMENT The patient states that he is having 4/10 back pain and is requesting pain medication. Will treat with PRN pain medication.
[2020-06-15 22:00] VITALS: BP 159/69
--- NOTE | 2020-06-15 22:15 | NUR ---
PAGED The patient requested to take Benzonatate 200 mg at night. He states that he uses it for his coughing at night. Medication is not in the patient's EMAR. DR. Garnica has been paged.
--- NOTE | 2020-06-15 23:15 | NUR ---
FAMILY CALL Received a call from the patient's , Bindu, who requested an update on her . Answered all the patient's questions. Bindu requested that the doctor speak with her for an update.
[2020-06-16 04:00] VITALS: BP 135/78
[2020-06-16 05:34] LABS: Basophils # (auto) 0 10 ^3/uL (0-0.2); Eosinophils # (auto) 0.1 10 ^3/uL (0-0.8); Monocytes # (auto) 0.4 10 ^3/uL (0-1.3); Neutrophils # (auto) 4.3 10 ^3/uL (1.6-8.6); Red Blood Cells 5.12 10^6/uL (4.5-5.90)
[2020-06-16 05:36] LABS: Basophils % (auto) 0.5 % (0.0-2.0); Eosinophils % (auto) 1.9 % (0.0-7.0); Hematocrit 35.5 % (41.0-53.0); Hemoglobin 10.9 g/dL (13.5-17.5); Lymphocytes # (auto) 1.9 10 ^3/uL (0.4-5.4); Lymphocytes % (auto) 28.3 % (10.0-50.0); Mean Corpuscular Hemoglobin 21.3 pg (28.0-32.0); Mean Corpuscular Hgb Conc. 30.8 g/dL (32.0-36.0); Mean Corpuscular Volume 69.3 fL (80.0-100.0); Neutrophils % (auto) 63.3 % (37.0-80.0); Nucleated Red Blood Cells % 0.1 %; Platelet Count (auto) 128 10^3/uL (140-450); White Blood Cell 6.7 10^3/uL (4.4-10.8)
[2020-06-16 05:40] LABS: Red Cell Distribution Width 22.3 % (11.8-14.3)
[2020-06-16 05:54] LABS: Potassium 4.1 mmol/L (3.5-5.1)
[2020-06-16] MEDS: ACCU-CHEK COMFORT CURVE STRIP VI SCH ×4 (06:00→17:33)
[2020-06-16] MEDS: InsuLIN REG 1unit/0.01ml Soln (100units/ml) SC SCH ×4 (06:00→17:33)
[2020-06-16 06:04] LABS: BUN/Creatinine Ratio 24.8; Calcium 8.6 mg/dL (8.5-10.1)
[2020-06-16] MEDS: IPRATROPIUM BROM 0.5 MG/2.5ML INH SOL NEB SCH ×3 (06:29→17:54)
[2020-06-16] MEDS: ALBUTEROL SULF 2.5 MG/0.5ML(0.5%) NEB SOLN NEB SCH ×3 (06:29→17:54)
[2020-06-16 08:00] VITALS: BP 140/69
--- NOTE | 2020-06-16 08:00 | NUR ---
OPENING SHIFT NOTE ASSUMED CARE OF PATIENT AWAKE AND ALERT. NO S/S OF DISTRESS NOTED OR COMPLAINTS OF PAIN. PATIENT UPDATED ON POC FOR THE DAY AND ALL QUESTIONS ANSWERED. BED IS IN LOWEST, LOCKED POSITION WITH SIDE RAILS UP X2 AND CALL LIGHT WITHIN REACH. WILL CONTINUE TO MONITOR Q1H AND PRN.
[2020-06-16] MEDS: levoFLOXacin 500MG 100 ML IV SCH (10:00)
[2020-06-16] MEDS: APIXABAN 5 MG TAB PO SCH ×2 (10:01→22:19)
[2020-06-16] MEDS: FUROSEMIDE 40 MG TAB PO SCH (10:01)
[2020-06-16] MEDS: AMIODARONE HCL 200 MG TAB PO SCH (10:01)
[2020-06-16] MEDS: SACUBITRIL-VALSARTAN 24mg/26mg TAB PO SCH ×2 (10:01→22:20)
[2020-06-16] MEDS: CARVEDILOL 12.5 MG TAB PO SCH ×2 (10:01→22:20)
[2020-06-16] MEDS: PANTOPRAZOLE 40 MG TAB PO SCH (10:02)
[2020-06-16] MEDS: ALLOPURINOL 100 MG TAB PO SCH (10:02)
[2020-06-16] MEDS: amLODIPine BESYLATE 5 MG TAB PO SCH (10:02)
[2020-06-16] MEDS: ACETAMINOPHEN 325 MG TAB PO PRN ×3 (10:51→22:37)
[2020-06-16] MEDS ORDERED: FUROSEMIDE 40 MG/4 ML VIAL IV ONE (11:00)
[2020-06-16 12:00] VITALS: BP 124/67
[2020-06-16 17:00] VITALS: BP 138/75
[2020-06-16 18:00] VITALS: BP 126/70
--- NOTE | 2020-06-16 19:10 | NUR ---
Opening Shift Note Assumed care of patient, awake and alert. No S/S of distress/SOB or pain. Patient is on 2L O2 NC. Bed is locked in lowest position with call light within reach. Instructed on POC and to call for assist PRN, will continue to monitor for changes Q1hr and PRN.
[2020-06-16] MEDS: ATORVASTATIN 20 MG TAB PO SCH (22:20)
[2020-06-17] MEDS: InsuLIN REG 1unit/0.01ml Soln (100units/ml) SC SCH ×3 (05:43→12:27)
[2020-06-17] MEDS: ACCU-CHEK COMFORT CURVE STRIP VI SCH ×3 (05:44→12:23)
[2020-06-17] MEDS: ACETAMINOPHEN 325 MG TAB PO PRN (05:45)
[2020-06-17] MEDS: ALBUTEROL SULF 2.5 MG/0.5ML(0.5%) NEB SOLN NEB SCH ×2 (06:11→11:37)
[2020-06-17] MEDS: IPRATROPIUM BROM 0.5 MG/2.5ML INH SOL NEB SCH ×2 (06:11→11:37)
[2020-06-17 06:36] LABS: BUN/Creatinine Ratio 21.4; Calcium 8.8 mg/dL (8.5-10.1)
--- NOTE | 2020-06-17 07:16 | NUR ---
OPENING SHIFT NOTE Assumed care of patient from film processing shift supervisor RN. Patient is alert and oriented x4, no signs of distress noted, patient denies pain. He was updated on the plan of care and verbalized understanding. Prosthetic for left leg noted at bedside. Bed is locked, in the lowest position, side rails up x2 and call light is in reach. He was encouraged to call for assistance as needed.
[2020-06-17 08:00] VITALS: BP 150/84
[2020-06-17] MEDS: APIXABAN 5 MG TAB PO SCH (09:31)
[2020-06-17] MEDS: SACUBITRIL-VALSARTAN 24mg/26mg TAB PO SCH (09:31)
[2020-06-17] MEDS: CARVEDILOL 12.5 MG TAB PO SCH (09:31)
[2020-06-17] MEDS: AMIODARONE HCL 200 MG TAB PO SCH (09:31)
[2020-06-17] MEDS: PANTOPRAZOLE 40 MG TAB PO SCH (09:31)
[2020-06-17] MEDS: ALLOPURINOL 100 MG TAB PO SCH (09:32)
[2020-06-17] MEDS: amLODIPine BESYLATE 5 MG TAB PO SCH (09:32)
[2020-06-17] MEDS ORDERED: FUROSEMIDE 40 MG/4 ML VIAL IV SCH (10:00)
[2020-06-17 12:00] VITALS: BP 128/80
--- NOTE | 2020-06-17 12:17 | NUR ---
SALBADOR AT BEDSIDE Updated on the patient status and plan of care was discussed with patient , he verbalized understanding. Per MD patient will be discharged today.
[2020-06-17 14:08] VITALS: BP 128/80
--- NOTE | 2020-06-17 15:50 | NUR ---
WOUND PICTURES TAKEN PER DC PROTOCOL, FORM COMPLETED WELL.
--- NOTE | 2020-06-17 15:50 | NUR ---
SALBADOR MADE AWARE OF POSITIVE BLOOD CULTURE Per MD patient may still be discharged, he will write a prescription for antibiotics.
--- NOTE | 2020-06-17 16:40 | NUR ---
DISCHARGE Discharge instructions given as ordered. Encourage to follow up with PMD as instructed. All questions and concerns addressed. Patient verbalized understanding. Medication reconciliation form completed and copy given to patient. IV removed with catheter intact, pressure dressing applied. Telemetry unit returned to ICU. Patient taken to vehicle via wheelchair with all personal belongings, accompanied by staff. No distress noted at time of departure.
== END 2020-06-17 16:40 | disposition home or self-care (01) | DRG 194 ==
LOC: EDBD 03:15 → ER 03:20 → TELE 03:21 → TELE-CENTR 11:03
PROVIDERS: ADMIT Nurse Practitioner; ATTEND Nurse Practitioner
PROC: 5A09357 Assistance with Respiratory Ventilation, Less than 24 Consecutive Hours, Continuous Positive Airway Pressure (ICD-10-PCS; principal; 2020-06-15)
DX: I13.0 Hypertensive heart and chronic kidney disease with heart failure and stage 1 through stage 4 chronic kidney disease, or unspecified chronic kidney disease (principal); J96.20 Acute and chronic respiratory failure, unspecified whether with hypoxia or hypercapnia; N17.0 Acute kidney failure with tubular necrosis; I50.21 Acute systolic (congestive) heart failure; J44.1 Chronic obstructive pulmonary disease with (acute) exacerbation; K21.9 Gastro-esophageal reflux disease without esophagitis; E78.5 Hyperlipidemia, unspecified; M10.9 Gout, unspecified; N18.3 Chronic kidney disease, stage 3 (moderate); E11.22 Type 2 diabetes mellitus with diabetic chronic kidney disease; E11.21 Type 2 diabetes mellitus with diabetic nephropathy; E66.9 Obesity, unspecified; Z83.3 Family history of diabetes mellitus; Z82.49 Family history of ischemic heart disease and other diseases of the circulatory system; Z79.82 Long term (current) use of aspirin; Z79.899 Other long term (current) drug therapy; Z79.4 Long term (current) use of insulin; E11.51 Type 2 diabetes mellitus with diabetic peripheral angiopathy without gangrene; Z68.39 Body mass index [BMI] 39.0-39.9, adult; Z95.810 Presence of automatic (implantable) cardiac defibrillator
CPT/HCPCS: 36415; 36600; 71045; 80048; 80053; 81001; 82728; 82805; 82962; 83605; 83735; 83880; 84484; 85025; 85379; 86141; 87040; 87076; 87077; 93005; 94640; 94660; G0378; J1815; J1956

== ENCOUNTER 2020-07-12 04:45 | Inpatient (IN) | payer MEDICAID ==
[~2020-07-12] VITALS: Ht 175.3 cm; Wt 115.4 kg
[~2020-07-12 04:45] MED LIST changes: -ASPI-404 PO; +ASPI-543 PO; +PATI1POW PO
[2020-07-12 05:10] LABS: Basophils # (auto) 0.1 10 ^3/uL (0-0.2); Eosinophils # (auto) 0.4 10 ^3/uL (0-0.8); Hemoglobin 12.9 g/dL (13.5-17.5); Lymphocytes # (auto) 4.5 10 ^3/uL (0.4-5.4); Monocytes # (auto) 0.6 10 ^3/uL (0-1.3); Neutrophils # (auto) 6.2 10 ^3/uL (1.6-8.6); Nucleated Red Blood Cells % 0.1 %
[2020-07-12 05:12] LABS: Basophils % (auto) 0.5 % (0.0-2.0); Eosinophils % (auto) 3.4 % (0.0-7.0); Hematocrit 42.7 % (41.0-53.0); Lymphocytes % (auto) 38.2 % (10.0-50.0); Mean Corpuscular Hemoglobin 21.4 pg (28.0-32.0); Mean Corpuscular Hgb Conc. 30.2 g/dL (32.0-36.0); Monocytes % (auto) 5.3 % (0.0-12.0); Neutrophils % (auto) 52.6 % (37.0-80.0); Platelet Count (auto) 130 10^3/uL (140-450); Red Blood Cells 6.02 10^6/uL (4.5-5.90); White Blood Cell 11.7 10^3/uL (4.4-10.8)
[2020-07-12 05:25] LABS: INR 1.04 (0.9-1.15); Partial Thromboplastin Time 25.4 sec (23.0-31.2); Red Cell Distribution Width 21.3 % (11.8-14.3)
[2020-07-12 05:31] LABS: Albumin 3.7 g/dL (3.4-5.0); Calcium 8.4 mg/dL (8.5-10.1); Magnesium 2.5 mg/dL (1.6-2.6); Potassium 4.4 mmol/L (3.5-5.1)
[2020-07-12 05:36] LABS: BUN/Creatinine Ratio 20.9; Bilirubin, Total 0.3 mg/dL (0.2-1.0); Total Protein 8.1 g/dL (6.4-8.2)
[2020-07-12] MEDS ORDERED: SODIUM BICARBONATE 8.4 % INJ 50ML VIAL IV ONE (06:00)
[2020-07-12] MEDS ORDERED: DOXYCYCLINE 100MG/250ML 250 ML IV ONE (07:00)
[2020-07-12] MEDS ORDERED: DexAMETHasone SOD PHOS 10MG/1ML VIAL INJ IV ONE (07:00)
[2020-07-12] MEDS ORDERED: MORPHINE SULF INJ 2 MG/ML SYRINGE 1ML IV PRN ×2 (10:00)
[2020-07-12] MEDS ORDERED: ALBUTEROL SULF HFA 90MCG INH 200DOSE IN PRN (10:00)
[2020-07-12] MEDS ORDERED: NITROGLYCERIN 0.4 MG SL TAB SL PRN (10:00)
[2020-07-12] MEDS ORDERED: ACETAMINOPHEN 500 MG TAB PO PRN (10:00)
[2020-07-12] MEDS ORDERED: TEMAZEPAM 15 MG CAP PO PRN (10:00)
[2020-07-12] MEDS ORDERED: DEXTROSE (50%) 50ML SYRG IV PRN (10:00)
[2020-07-12] MEDS ORDERED: ALBUTEROL SULF 2.5 MG/0.5ML(0.5%) NEB SOLN NEB PRN (10:00)
[2020-07-12] MEDS: PATIROMER 8.4 GM PO SCH (11:37)
[2020-07-12] MEDS: Sitagliptin (Januvia) 100 MG TAB PO SCH (11:37)
[2020-07-12] MEDS: FUROSEMIDE 40 MG/4 ML VIAL IV SCH (11:37)
[2020-07-12] MEDS: ALLOPURINOL 100 MG TAB PO SCH (11:38)
[2020-07-12] MEDS: SACUBITRIL-VALSARTAN 24mg/26mg TAB PO SCH ×2 (11:39→21:56)
[2020-07-12] MEDS: APIXABAN 5 MG TAB PO SCH ×2 (11:39→21:57)
[2020-07-12] MEDS: ASPirin-EC 81 mg tab PO SCH ×2 (11:39→11:46)
[2020-07-12] MEDS: CARVEDILOL 12.5 MG TAB PO SCH ×2 (11:40→21:57)
[2020-07-12] MEDS: amLODIPine BESYLATE 5 MG TAB PO SCH (11:41)
[2020-07-12] MEDS: PANTOPRAZOLE 40 MG TAB PO SCH (11:41)
[2020-07-12] MEDS: SPIRONOLACTONE 25 MG TAB PO SCH ×2 (11:42→21:57)
[2020-07-12] MEDS: AMIODARONE HCL 200 MG TAB PO SCH (11:42)
[2020-07-12] MEDS: BUDESONIDE FORMOTEROL FUMARATE IN SCH ×2 (11:43→22:00)
[2020-07-12] MEDS: glipiZIDE 5 MG TAB PO SCH ×2 (11:44→16:46)
[2020-07-12 12:00] VITALS: BP 155/78
--- NOTE | 2020-07-12 12:08 | NUR ---
Telemetry admit from ER GENEVIEVE GRIFFITHS admitted to Telemetry unit after SBAR received. Patient oriented to LISA ROA RN primary RN, unit, room, bed, and unit policies regarding patient care and visiting hours. Patient now on continuous telemetry monitoring, tele box # 6 and telemetry reading on arrival to unit is SR. Patient placed on bedside oxygen, weighed by bedscale and encouraged to call if they need something. All questions and concerns addressed, patient verbalized understanding.
[2020-07-12] MEDS: ACCU-CHEK COMFORT CURVE STRIP VI SCH ×4 (12:48→23:47)
[2020-07-12 12:49] LABS: Amphetamine Screen, Urine NEGATIVE (NEGATIVE); Barbiturate Scree,Urine NEGATIVE (NEGATIVE); Benzodiazephine Screen, Urine NEGATIVE (NEGATIVE); Cannabinoid Screen, Urine NEGATIVE (NEGATIVE); Cocaine Screen, Urine NEGATIVE (NEGATIVE); Phencyclidine Screen, Urine NEGATIVE (NEGATIVE)
[2020-07-12] MEDS: InsuLIN REG 1unit/0.01ml Soln (100units/ml) SC SCH ×4 (12:50→23:51)
[2020-07-12 12:54] LABS: Opiate Scree,Urine NEGATIVE (NEGATIVE)
[2020-07-12 13:15] VITALS: BP 155/78
[2020-07-12] MEDS ORDERED: ALBUTEROL SULF HFA 90MCG INH 200DOSE IN SCH (14:00)
[2020-07-12] MEDS ORDERED: LOSA25TA38 PO (14:16)
[2020-07-12] MEDS ORDERED: SEMA2INJ2 SC (14:16)
[2020-07-12] MEDS: TAMSULOSIN HYDROCHLORIDE 0.4 MG CAP PO SCH (16:46)
[2020-07-12 17:00] VITALS: BP 132/73
--- NOTE | 2020-07-12 19:40 | NUR ---
Report Given Report given to Theresa SALCEDO.
--- NOTE | 2020-07-12 19:45 | NUR ---
Report received from DENISSE Meadows.
--- NOTE | 2020-07-12 20:00 | NUR ---
Transferred Patient From [facility] Unit Patient transferred from 234 via wheelchair with all personal belongings to room 216A. No sign/symptoms of distress noted upon departure. Patient care endorsed to Theresa SALCEDO.
--- NOTE | 2020-07-12 20:04 | NUR ---
Received patient from room 234. Care assumed.
--- NOTE | 2020-07-12 20:10 | NUR ---
Assumed care of patient, awake and alert. Patient on O2 at 4LPM, no complains of pain. Instructed on POC and to call for assist PRN, will continue to monitor for changes Q1hr and PRN.
[2020-07-12 20:11] VITALS: BP 132/73
[2020-07-12] MEDS: ATORVASTATIN 20 MG TAB PO SCH (21:57)
[2020-07-12 22:00] VITALS: BP 123/69
[2020-07-12] MEDS: DOXYCYCLINE 100MG/250ML 250 ML IV SCH (22:03)
[2020-07-12] MEDS: traMADol HCL 50 MG TAB PO PRN (22:08)
[2020-07-12] MEDS: DOCUSATE SOD 100 MG CAP PO PRN (22:19)
--- NOTE | 2020-07-12 23:58 | NUR ---
Respiratory note: ASSESSMENT FOR PRN MED NEB TX. PT SLEEPING COMFORTABLY, NO DISTRESS NOTED. RN AT BEDSIDE, PT WOKEN UP. HR 77, SPO2 99% ON 4LNC, RR 16. PT STATES HE OCCASIONALLY WEARS HOME O2 ON 2L. FIO2 TITRATED TO 3L. MED NEB TX NOT INDICATED AT THIS TIME, WILL CONTINUE TO MONITOR.
[2020-07-13] MEDS: ACCU-CHEK COMFORT CURVE STRIP VI SCH ×5 (03:52→20:24)
[2020-07-13] MEDS: InsuLIN REG 1unit/0.01ml Soln (100units/ml) SC SCH ×5 (03:57→20:32)
[2020-07-13 05:00] VITALS: BP 118/66
[2020-07-13] MEDS: glipiZIDE 5 MG TAB PO SCH ×2 (06:37→16:17)
[2020-07-13 06:45] LABS: Basophils # (auto) 0 10 ^3/uL (0-0.2); Eosinophils # (auto) 0 10 ^3/uL (0-0.8); White Blood Cell 8.4 10^3/uL (4.4-10.8)
[2020-07-13] MEDS: INSULIN LANTUS (GLARGINE) 1 /0.01ml (100units/ml) SC SCH (06:46)
[2020-07-13 06:47] LABS: Basophils % (auto) 0.3 % (0.0-2.0); Hematocrit 37.7 % (41.0-53.0); Hemoglobin 11.9 g/dL (13.5-17.5); Lymphocytes % (auto) 11.8 % (10.0-50.0); Mean Corpuscular Hemoglobin 21.8 pg (28.0-32.0); Mean Corpuscular Hgb Conc. 31.5 g/dL (32.0-36.0); Mean Corpuscular Volume 69.2 fL (80.0-100.0); Monocytes # (auto) 0.3 10 ^3/uL (0-1.3); Monocytes % (auto) 3.1 % (0.0-12.0); Neutrophils # (auto) 7.1 10 ^3/uL (1.6-8.6); Neutrophils % (auto) 84.8 % (37.0-80.0); Nucleated Red Blood Cells % 0.1 %; Red Blood Cells 5.44 10^6/uL (4.5-5.90)
[2020-07-13 07:05] LABS: Potassium 4.3 mmol/L (3.5-5.1)
[2020-07-13 07:08] LABS: Red Cell Distribution Width 20.3 % (11.8-14.3)
[2020-07-13 07:09] LABS: Platelet Count (auto) 99 10^3/uL (140-450)
[2020-07-13 07:10] LABS: Albumin 3.2 g/dL (3.4-5.0); BUN/Creatinine Ratio 28.9; Calcium 8.9 mg/dL (8.5-10.1)
[2020-07-13 07:12] LABS: Bilirubin, Total 0.4 mg/dL (0.2-1.0); Total Protein 7.3 g/dL (6.4-8.2)
--- NOTE | 2020-07-13 07:30 | NUR ---
Opening Shift Note Assumed care of patient, awake and alert. No S/S of distress/SOB or pain. Instructed on POC and to call for assist PRN, will continue to monitor for changes Q1hr and PRN.
[2020-07-13 09:00] VITALS: BP 119/68
[2020-07-13] MEDS: cefTRIAXone 1GM/50ML D5W 50 ML IV SCH (09:57)
[2020-07-13] MEDS: FUROSEMIDE 40 MG/4 ML VIAL IV SCH (09:57)
[2020-07-13] MEDS: DOXYCYCLINE 100MG/250ML 250 ML IV SCH ×2 (09:57→21:12)
[2020-07-13] MEDS: AMIODARONE HCL 200 MG TAB PO SCH (09:58)
[2020-07-13] MEDS: SPIRONOLACTONE 25 MG TAB PO SCH ×2 (09:58→22:00)
[2020-07-13] MEDS: ASPirin-EC 81 mg tab PO SCH (09:59)
[2020-07-13] MEDS: APIXABAN 5 MG TAB PO SCH ×2 (09:59→22:00)
[2020-07-13] MEDS: CARVEDILOL 12.5 MG TAB PO SCH ×2 (09:59→22:00)
[2020-07-13] MEDS: SACUBITRIL-VALSARTAN 24mg/26mg TAB PO SCH ×2 (09:59→22:00)
[2020-07-13] MEDS: amLODIPine BESYLATE 5 MG TAB PO SCH (10:00)
[2020-07-13] MEDS: BUDESONIDE FORMOTEROL FUMARATE IN SCH ×2 (10:00→21:23)
[2020-07-13] MEDS: ALLOPURINOL 100 MG TAB PO SCH (10:00)
[2020-07-13] MEDS ORDERED: ENOXAPARIN SOD 40 MG/0.4 ML SYRINGE SC SCH (10:00)
[2020-07-13] MEDS ORDERED: ZINC SULFATE 220mg CAP or TAB PO SCH (10:00)
[2020-07-13] MEDS: Sitagliptin (Januvia) 100 MG TAB PO SCH (10:00)
[2020-07-13] MEDS ORDERED: CHOLECALCIFEROL (VITD3) 2,000 UNIT CAP PO SCH (10:00)
[2020-07-13] MEDS: PANTOPRAZOLE 40 MG TAB PO SCH (10:00)
[2020-07-13] MEDS: PATIROMER 8.4 GM PO SCH (10:00)
[2020-07-13] MEDS ORDERED: ASCORBIC ACID 1,000 MG TAB PO SCH (10:00)
[2020-07-13] MEDS: traMADol HCL 50 MG TAB PO PRN ×2 (10:07→16:33)
--- NOTE | 2020-07-13 10:07 | NUR ---
PATIENT REPORTING BACK PAIN AT 7 FROM BED, REQUESTING A PILL FOR PAIN, WILL CONTINUE TO MONITOR.
[2020-07-13 13:00] VITALS: BP 135/75
--- NOTE | 2020-07-13 15:55 | NUR ---
Respiratory note: Assessed pt for prn medneb tx. HR 72, RR 16, SPO2 98% on 3lpm nasal cannula. Breath sounds clear/dim, pt denies SOB, no s/s of distress. Medneb tx not indicated at this time. Pt aware to call for RT if needed.
[2020-07-13] MEDS: TAMSULOSIN HYDROCHLORIDE 0.4 MG CAP PO SCH (16:17)
[2020-07-13 17:00] VITALS: BP 128/77
--- NOTE | 2020-07-13 19:40 | NUR ---
Opening Shift Note Assumed care of patient, awake and alert. No S/S of distress/SOB or pain. Instructed on POC and to call for assist PRN, patient verbalized understanding and in agreement. Fall and safety precautions in place. Call light within reach and able to use. Will continue to monitor for changes Q1hr and PRN.
--- NOTE | 2020-07-13 20:51 | NUR ---
RT NOTE: PT ASSESSED FOR PRN MED NEB TX, PT ON 3LPM NC SPO2 97% HR 75, RR 18. BS CLEAR AND DECREASED. PT DENIES SOB AND NO DISTRESS NOTED. NO TX INDICATED. PT NOTIFIED TO HAVE RT PAGED IF SOB OCCURS.
[2020-07-13 22:00] VITALS: BP 120/72
[2020-07-13] MEDS: ATORVASTATIN 20 MG TAB PO SCH (22:00)
[2020-07-13] MEDS: DOCUSATE SOD 100 MG CAP PO PRN (22:00)
[2020-07-14] MEDS: ACCU-CHEK COMFORT CURVE STRIP VI SCH ×3 (00:23→08:03)
[2020-07-14] MEDS: InsuLIN REG 1unit/0.01ml Soln (100units/ml) SC SCH ×3 (04:00→08:00)
[2020-07-14 05:00] VITALS: BP 113/69
[2020-07-14] MEDS: INSULIN LANTUS (GLARGINE) 1 /0.01ml (100units/ml) SC SCH (06:24)
[2020-07-14] MEDS: glipiZIDE 5 MG TAB PO SCH ×2 (06:25→12:44)
[2020-07-14 07:10] LABS: Basophils # (auto) 0 10 ^3/uL (0-0.2); Eosinophils # (auto) 0.1 10 ^3/uL (0-0.8); Eosinophils % (auto) 1.4 % (0.0-7.0); Hemoglobin 11.8 g/dL (13.5-17.5); Lymphocytes # (auto) 2.3 10 ^3/uL (0.4-5.4); Lymphocytes % (auto) 34.3 % (10.0-50.0); Monocytes # (auto) 0.3 10 ^3/uL (0-1.3); White Blood Cell 6.8 10^3/uL (4.4-10.8)
[2020-07-14 07:25] LABS: Basophils % (auto) 0.7 % (0.0-2.0); Hematocrit 38.1 % (41.0-53.0); Mean Corpuscular Hemoglobin 21.4 pg (28.0-32.0); Mean Corpuscular Hgb Conc. 30.9 g/dL (32.0-36.0); Mean Corpuscular Volume 69.2 fL (80.0-100.0); Monocytes % (auto) 4.9 % (0.0-12.0); Neutrophils % (auto) 58.7 % (37.0-80.0); Platelet Count (auto) 104 10^3/uL (140-450); Red Blood Cells 5.51 10^6/uL (4.5-5.90)
[2020-07-14 07:27] LABS: BUN/Creatinine Ratio 32.2; Calcium 8.4 mg/dL (8.5-10.1)
[2020-07-14 07:28] LABS: Red Cell Distribution Width 20.4 % (11.8-14.3)
[2020-07-14 08:00] VITALS: BP 120/72
[2020-07-14] MEDS ORDERED: DEXTROSE (50%) 50ML SYRG IV PRN (08:30)
[2020-07-14 09:00] VITALS: BP 112/68
--- NOTE | 2020-07-14 09:00 | NUR ---
DR SIU AT BED SIDE FOLLOWING UP ON PT, INSTRUCTED PT TO RESUME HOME MEDICATIONS, AND AN ADDITIONAL RX WILL BE GIVEN TO PT, FOLLOW UP WITH THE PCP AND DR ROMERO, PT VERBALIS UNDERSTANDING
--- NOTE | 2020-07-14 09:00 | NUR ---
ASSESSMENT NOTE PT IS ALERT ORIENTED X4, RESTING IN BED COMFORTABLY ON HIGH FISH POSITION, ABLE TO SELF REPOSITION AND VERBALIS HIS DEMANDS, PT HAS LEFT BKA, A PROSTHETIC LEG NOTED AT BED SIDE, LARGE SOFT ABDOMEN NOTED, PAIN 0/10, CALL LIGHT WITHIN REACH
[2020-07-14] MEDS: cefTRIAXone 1GM/50ML D5W 50 ML IV SCH (09:29)
[2020-07-14] MEDS: BUDESONIDE FORMOTEROL FUMARATE IN SCH (09:29)
[2020-07-14] MEDS: amLODIPine BESYLATE 5 MG TAB PO SCH (09:30)
[2020-07-14] MEDS: FUROSEMIDE 40 MG/4 ML VIAL IV SCH (09:30)
[2020-07-14] MEDS: APIXABAN 5 MG TAB PO SCH (09:31)
[2020-07-14] MEDS: SPIRONOLACTONE 25 MG TAB PO SCH (09:31)
[2020-07-14] MEDS: SACUBITRIL-VALSARTAN 24mg/26mg TAB PO SCH (09:31)
[2020-07-14] MEDS: ASPirin-EC 81 mg tab PO SCH (09:31)
[2020-07-14] MEDS: ALLOPURINOL 100 MG TAB PO SCH (09:31)
[2020-07-14] MEDS: PANTOPRAZOLE 40 MG TAB PO SCH (09:32)
[2020-07-14] MEDS: AMIODARONE HCL 200 MG TAB PO SCH (09:32)
[2020-07-14] MEDS: CARVEDILOL 12.5 MG TAB PO SCH (09:32)
[2020-07-14] MEDS: DOCUSATE SOD 100 MG CAP PO PRN (09:33)
[2020-07-14] MEDS: Sitagliptin (Januvia) 100 MG TAB PO SCH (10:00)
[2020-07-14] MEDS: PATIROMER 8.4 GM PO SCH (10:00)
[2020-07-14] MEDS ORDERED: DOXYCYCLINE 100 MG TAB/CAP PO SCH (10:00)
[2020-07-14 10:40] VITALS: BP 112/68
--- NOTE | 2020-07-14 11:00 | NUR ---
ALL DISCHARGE INSTRUCTION GIVEN TO PT VERBALIS UNDERSTANDING, ANSWER ALL PATIENT'S QUESTIONS, AND HIS CONCERNS STATED FAMILY WILL BE HERE AFTER 12, ALL HOME MEDICATIONS ARE RETURN TO PT
[2020-07-14] MEDS ORDERED: ACCU-CHEK COMFORT CURVE STRIP VI SCH (11:30)
[2020-07-14] MEDS ORDERED: InsuLIN REG 1unit/0.01ml Soln (100units/ml) SC SCH ×2 (11:30→22:00)
--- NOTE | 2020-07-14 11:34 | NUR ---
Respiratory note: PT ASSESSED FOR PRN MED NEB TX, NO TX DESIRED NOR INDICATED. HR 66 RR 18 SPO2 94% ON RA BREATH SOUNDS ARE CLEAR T/O POSTERIORLY. RN AND PT AWARE TO HAVE RT PAGED IF NEEDED.
[2020-07-14 12:42] VITALS: BP 136/78
--- NOTE | 2020-07-14 13:00 | NUR ---
Discharge instructions given as ordered. Encourage to follow up with PMD as instructed. All questions and concerns addressed. Patient verbalized understanding. Medication reconciliation form completed and copy given to patient. Home medications held in Pharmacy returned to patient. IV removed with catheter intact, pressure dressing applied.Telemetry unit returned to ICU. Patient taken to vehicle via wheelchair with all personal belongings, accompanied by staff. No distress noted at time of departure.
== END 2020-07-14 13:00 | disposition home or self-care (01) | DRG 139 ==
LOC: ER 04:45 → EDBD 04:45 → TELE 04:46 → TELE-CENTR 12:05 → TELE-EAST 12:50 → TELE-CENTR 20:05
PROVIDERS: ADMIT Internal Medicine; ATTEND Internal Medicine
PROC: 5A09357 Assistance with Respiratory Ventilation, Less than 24 Consecutive Hours, Continuous Positive Airway Pressure (ICD-10-PCS; principal; 2020-07-12)
DX: J18.9 Pneumonia, unspecified organism (principal); J96.01 Acute respiratory failure with hypoxia; N17.0 Acute kidney failure with tubular necrosis; Z20.828 Contact with and (suspected) exposure to other viral communicable diseases; E87.2 Acidosis; J44.1 Chronic obstructive pulmonary disease with (acute) exacerbation; I50.42 Chronic combined systolic (congestive) and diastolic (congestive) heart failure; D69.6 Thrombocytopenia, unspecified; E11.65 Type 2 diabetes mellitus with hyperglycemia; R65.10 Systemic inflammatory response syndrome (SIRS) of non-infectious origin without acute organ dysfunction; I13.0 Hypertensive heart and chronic kidney disease with heart failure and stage 1 through stage 4 chronic kidney disease, or unspecified chronic kidney disease; E66.01 Morbid (severe) obesity due to excess calories; E11.51 Type 2 diabetes mellitus with diabetic peripheral angiopathy without gangrene; E11.22 Type 2 diabetes mellitus with diabetic chronic kidney disease; J45.901 Unspecified asthma with (acute) exacerbation; J44.0 Chronic obstructive pulmonary disease with (acute) lower respiratory infection; M10.9 Gout, unspecified; K21.9 Gastro-esophageal reflux disease without esophagitis; D64.9 Anemia, unspecified; E78.5 Hyperlipidemia, unspecified; N18.9 Chronic kidney disease, unspecified; Z82.49 Family history of ischemic heart disease and other diseases of the circulatory system; Z83.3 Family history of diabetes mellitus; Z89.512 Acquired absence of left leg below knee; Z95.810 Presence of automatic (implantable) cardiac defibrillator; Z68.38 Body mass index [BMI] 38.0-38.9, adult
CPT/HCPCS: 36415; 36600; 71045; 80048; 80053; 80307; 82550; 82728; 82805; 82962; 83036; 83605; 83735; 83880; 84443; 84484; 85025; 85379; 85610; 85730; 87040; 87070; 87081; 87426; 87804; 87880; 93005; 94660; 97163; G0378; J0696; J1100; J1815; J3490